=== PATIENT | male | born 1980 | race Caucasian/White ===

== ENCOUNTER 2017-06-04 10:40 | Emergency (ER) | payer SELFPAY ==
[~2017-06-04] VITALS: Ht 172.7 cm; Wt 68.2 kg
[2017-06-04 10:44] VITALS: BP 151/96; PULSE 105; RESP 14; TEMP 98.4; O2SAT 97
[2017-06-04 12:14] LABS: AUTOMATED NEUTROPHIL # 6.3 TH/MM3 (1.8-7.7); BASOPHIL % 0.5 % (0.0-2.0); EOSINOPHIL # 0.1 TH/MM3 (0-0.4); EOSINOPHIL % 1.5 % (0.0-4.0); HEMATOCRIT 47.4 % (39.0-51.0); HEMO FLAGS DIFF FINAL; LYMPHOCYTE # 1.1 TH/MM3 (1.0-4.8); MEAN CORPUSCULAR HEMOGLOBIN 30.6 PG (27.0-34.0); MEAN CORPUSCULAR HGB CONC 33.6 % (32.0-36.0); MONO % 6.9 % (0.0-8.0); NEUT % 77.1 % (16.0-70.0); PLATELET COUNT 229 TH/MM3 (150-450); RED BLOOD COUNT 5.21 MIL/MM3 (4.50-5.90); RED CELL DISTRIBUTION WIDTH 13.4 % (11.6-17.2); WHITE BLOOD COUNT 8.2 TH/MM3 (4.0-11.0)
[2017-06-04] MEDS ORDERED: TRAZ50TA12 PO (12:23)
[2017-06-04] MEDS ORDERED: EFFE150C PO (12:23)
[2017-06-04] MEDS ORDERED: GABA800T PO (12:23)
--- NOTE | 2017-06-04 12:24 | PD ---
HPI Chief Complaint: Psychiatric Symptoms Time Seen by Provider: 12:23 Travel History International Travel<30 days: No Contact w/Intl Traveler<30days: No Traveled to known affect area: No History of Present Illness HPI 36-year-old male with history of bipolar and depression presents emergency Department with complaints of "fleeting thoughts of suicide". She states he ran out of his meds 1 week ago and currently has no local PCP or psychiatrist. Patient denies recent alcohol or drug use. Patient currently living in a sober house. Patient denies any acute medical issues currently. He is requesting psychiatric evaluation. He has no known drug allergies. [facility] Social History Alcohol Use: No Tobacco Use: No Substance Use: No Allergies-Medications (Allergen,Severity, Reaction): Coded Allergies: No Known Allergies (Unverified , 06/04/17) Reported Meds & Prescriptions Reported Meds & Active Scripts Active Reported Trazodone (Trazodone HCl) 50 Mg Tab 50 Mg PO HS Gabapentin 800 Mg Tab 800 Mg PO QID Effexor XR 24 HR (Venlafaxine HCl) 150 Mg Cap 300 Mg PO DAILY Review of Systems Except as stated in HPI: all other systems reviewed are Neg General / Constitutional: No: Fever Eyes: No: Visual changes HENT: No: Headaches Cardiovascular: No: Chest Pain or Discomfort Respiratory: No: Shortness of Breath Gastrointestinal: No: Abdominal Pain Genitourinary: No: Dysuria Musculoskeletal: No: Pain Skin: No Rash Neurologic: No: Weakness Psychiatric: No: Depression Endocrine: No: Polydipsia Hematologic/Lymphatic: No: Easy Bruising Physical Exam Narrative GENERAL: Patient appears no acute distress. SKIN: Warm and dry. HEAD: Atraumatic. Normocephalic. EYES: Pupils equal and round. No scleral icterus. No injection or drainage. ENT: No nasal bleeding or discharge. Mucous membranes pink and moist. Pharynx is clear. Airway is patent. NECK: Trachea midline. Supple and nontender. CARDIOVASCULAR: Regular rate and rhythm. RESPIRATORY: No accessory muscle use. Clear to auscultation. Breath sounds equal bilaterally. MUSCULOSKELETAL: Extremities without clubbing, cyanosis, or edema. No obvious deformities. NEUROLOGICAL: Awake and alert. No obvious cranial nerve deficits. Motor grossly within normal limits. Five out of 5 muscle strength in the arms and legs. Normal speech. PSYCHIATRIC: Appropriate mood and affect; insight and judgment normal. Data Data Last Documented VS Vital Signs Date Time Temp Pulse Resp B/P (MAP) Pulse Ox O2 Delivery O2 Flow Rate FiO2 06/04/17 10:44 98.4 105 14 151/96 (114) 97 Orders Orders Complete Blood Count With Diff (06/04/17 11:16) Basic Metabolic Panel (Bmp) (06/04/17 11:16) Psych Screen (06/04/17 11:16) Drug Screen, Random Urine (06/04/17 11:16) Alcohol (Ethanol) (06/04/17 11:16) Labs Laboratory Tests Test 06/04/17 11:55 06/04/17 11:58 White Blood Count 8.2 TH/MM3 Red Blood Count 5.21 MIL/MM3 Hemoglobin 15.9 GM/DL Hematocrit 47.4 % Mean Corpuscular Volume 91.0 FL Mean Corpuscular Hemoglobin 30.6 PG Mean Corpuscular Hemoglobin Concent 33.6 % Red Cell Distribution Width 13.4 % Platelet Count 229 TH/MM3 Mean Platelet Volume 9.4 FL Neutrophils (%) (Auto) 77.1 % Lymphocytes (%) (Auto) 14.0 % Monocytes (%) (Auto) 6.9 % Eosinophils (%) (Auto) 1.5 % Basophils (%) (Auto) 0.5 % Neutrophils # (Auto) 6.3 TH/MM3 Lymphocytes # (Auto) 1.1 TH/MM3 Monocytes # (Auto) 0.6 TH/MM3 Eosinophils # (Auto) 0.1 TH/MM3 Basophils # (Auto) 0.0 TH/MM3 CBC Comment DIFF FINAL Differential Comment Blood Urea Nitrogen 12 MG/DL Creatinine 0.77 MG/DL Random Glucose 86 MG/DL Calcium Level 9.3 MG/DL Sodium Level 139 MEQ/L Potassium Level 4.0 MEQ/L Chloride Level 105 MEQ/L Carbon Dioxide Level 28.8 MEQ/L Anion Gap 5 MEQ/L Estimat Glomerular Filtration Rate 113 ML/MIN Ethyl Alcohol Level LESS THAN 3 MG/DL Urine Opiates Screen NEG Urine Barbiturates Screen NEG Urine Amphetamines Screen NEG Urine Benzodiazepines Screen NEG Urine Cocaine Screen NEG Urine Cannabinoids Screen NEG MDM Medical Decision Making Medical Screen Exam Complete: Yes Emergency Medical Condition: Yes Differential Diagnosis Bipolar disorder. Suicidal ideation. Need for psychiatric evaluation. Narrative Course Psychiatric labs are ordered per protocol. Labs are all within normal limits. Psychiatric screening ordered. Patient is medically cleared for psychiatric evaluation. Diagnosis Primary Impression: Depression Qualified Codes: F32.9 - Major depressive disorder, single episode, unspecified Additional Impressions: Bipolar disorder Qualified Codes: F31.32 - Bipolar disorder, current episode depressed, moderate Medical clearance for psychiatric admission Condition: Luis Martines Jun 04, 2017 12:24
[2017-06-04 12:35] LABS: ANION GAP 5 MEQ/L (5-15); BICARBONATE 28.8 MEQ/L (21.0-32.0); BLOOD UREA NITROGEN 12 MG/DL (7-18); CHLORIDE 105 MEQ/L (98-107); GLOMERULAR FILTRATION RATE 113 ML/MIN (>89); SODIUM (NA) 139 MEQ/L (136-145)
[2017-06-04 12:37] LABS: ALCOHOL LESS THAN 3 MG/DL (0-5)
[2017-06-04 17:18] VITALS: BP 150/94; PULSE 95; RESP 18; TEMP 97.7; O2SAT 100
[2017-06-04 22:17] VITALS: BP 150/88; PULSE 90; RESP 18; TEMP 97.4; O2SAT 96
[2017-06-05 02:00] VITALS: BP 142/88; PULSE 84; RESP 16; TEMP 98.2; O2SAT 97
[2017-06-05 06:18] VITALS: BP 128/84; PULSE 80; RESP 18; TEMP 97.5; O2SAT 97
[2017-06-05] MEDS ORDERED: IBUPROFEN 800 MG TAB PO ONE (10:00)
[2017-06-05 11:00] VITALS: BP 129/74; PULSE 100; RESP 18
[2017-06-05] MEDS ORDERED: TRAZ50TA12 PO (12:42)
[2017-06-05] MEDS ORDERED: EFFE150C PO (12:42)
[2017-06-05] MEDS ORDERED: GABA800T PO (12:42)
--- NOTE | 2017-06-05 12:43 | PD ---
Physical Exam Time Seen by Provider: 12:[address] Stallings has evaluated the patient, lifted the Horan act, and cleared the patient for discharge. Data Data Last Documented VS Vital Signs Date Time Temp Pulse Resp B/P (MAP) Pulse Ox O2 Delivery O2 Flow Rate FiO2 06/05/17 11:00 100 18 129/74 (92) Room Air 06/05/17 06:18 97.5 97 Orders Orders Complete Blood Count With Diff (06/04/17 11:16) Basic Metabolic Panel (Bmp) (06/04/17 11:16) Psych Screen (06/04/17 11:16) Drug Screen, Random Urine (06/04/17 11:16) Alcohol (Ethanol) (06/04/17 11:16) Diet Regular Basic (06/04/17 Dinner) Diet Regular Basic (06/05/17 Breakfast) Diet Regular Basic (06/05/17 Lunch) Ibuprofen (Motrin) (06/05/17 10:00) Gabapentin (Neurontin) (06/05/17 12:45) Labs Laboratory Tests Test 06/04/17 11:55 06/04/17 11:58 White Blood Count 8.2 TH/MM3 Red Blood Count 5.21 MIL/MM3 Hemoglobin 15.9 GM/DL Hematocrit 47.4 % Mean Corpuscular Volume 91.0 FL Mean Corpuscular Hemoglobin 30.6 PG Mean Corpuscular Hemoglobin Concent 33.6 % Red Cell Distribution Width 13.4 % Platelet Count 229 TH/MM3 Mean Platelet Volume 9.4 FL Neutrophils (%) (Auto) 77.1 % Lymphocytes (%) (Auto) 14.0 % Monocytes (%) (Auto) 6.9 % Eosinophils (%) (Auto) 1.5 % Basophils (%) (Auto) 0.5 % Neutrophils # (Auto) 6.3 TH/MM3 Lymphocytes # (Auto) 1.1 TH/MM3 Monocytes # (Auto) 0.6 TH/MM3 Eosinophils # (Auto) 0.1 TH/MM3 Basophils # (Auto) 0.0 TH/MM3 CBC Comment DIFF FINAL Differential Comment Blood Urea Nitrogen 12 MG/DL Creatinine 0.77 MG/DL Random Glucose 86 MG/DL Calcium Level 9.3 MG/DL Sodium Level 139 MEQ/L Potassium Level 4.0 MEQ/L Chloride Level 105 MEQ/L Carbon Dioxide Level 28.8 MEQ/L Anion Gap 5 MEQ/L Estimat Glomerular Filtration Rate 113 ML/MIN Ethyl Alcohol Level LESS THAN 3 MG/DL Urine Opiates Screen NEG Urine Barbiturates Screen NEG Urine Amphetamines Screen NEG Urine Benzodiazepines Screen NEG Urine Cocaine Screen NEG Urine Cannabinoids Screen NEG MDM Supervised Visit with [facility]: No Narrative Course Dr. Stallings has evaluated the patient, lifted the Horan act, and cleared the patient for discharge. Patient contracts safety. Denies suicidal or homicidal ideations. Patient will be provided community resource packet to [facility] for follow-up. Has friends and family for support. Patient was medically cleared by alternate provider prior to psych screening. Patient has been evaluated by psychiatry and and is now cleared for discharge. Diagnosis Primary Impression: Depression Qualified Codes: F32.9 - Major depressive disorder, single episode, unspecified Additional Impressions: Medical clearance for psychiatric admission Bipolar disorder Qualified Codes: F31.32 - Bipolar disorder, current episode depressed, moderate Referrals: JESSICA (Out patient) [facility] Primary Care Physician Psychiatrist Susanna [facility] Patient Instructions: Bipolar Disorder (ED), Depression (ED), General Instructions Additional Instruction: Contract safety to your self and others Follow-up with psychiatry Follow-up with primary care provider Follow-up with Zafar Lea Return to the emergency department immediately with worsening of symptoms Med/Other Pt SpecificInfo: No Change to Meds Disposition: 01 DISCHARGE HOME Condition: Stable Malou Herbert Jun 05, 2017 12:43
[2017-06-05 12:45] VITALS: BP 129/74; PULSE 100; RESP 18
--- NOTE | 2017-06-05 12:52 | PD ---
History of Present Illness Chief Complaint: Psychiatric Symptoms Time Seen by Provider: 12:30 Travel History International Travel<30 Days: No Contact w/Intl Traveler<30days: No Known affected area: No Legal Status Legal Status: Voluntary History of Present Illness: 36-year-old male presents voluntarily after moving to this area and wanting refills for his medicines. He denies any suicidal or homicidal ideation, plan or intent at this time, despite earlier reports documented by the ED physician. Patient is verbally ela for safety and he is competent to do so. No psychotic symptoms and no cognitive deficits. Patient was offered prescriptions and excepted them with plans to have them filled at [facility] and returned to [facility] for further evaluation and treatment. PFSH Past Medical History Anxiety: Yes Depression: Yes Past Surgical History Tonsillectomy: Yes Other Surgery: Yes (LITHOTRIPSY) Psychiatric History Psychiatric History Hx Psychiatric Treatment: Patient with a stated hx of depression and anxiety. History of Inpatient Treatment: Yes Guns or firearms in home: No Social History Hx Alcohol Use: No Hx Tobacco Use: No Substance Use Type: Alcohol, Marijuana, Amphetamines-Stimulants, Nicotine/ Cigarettes, Benzos (Valium,Xanax), Cocaine, Synth Opiates-Pain Pills Hx of Substance Use Treatment: Yes Allergies-Medications (Allergen,Severity, Reaction): Coded Allergies: No Known Allergies (Unverified , 06/04/17) Reported Meds & Prescriptions Reported Meds & Active Scripts Active Trazodone (Trazodone HCl) 50 Mg Tab 50 Mg PO HS Gabapentin 800 Mg Tab 800 Mg PO QID Effexor XR 24 HR (Venlafaxine HCl) 150 Mg Cap 300 Mg PO DAILY Review of Systems Psychiatric: COMPLAINS OF: Anxiety Except as stated in HPI: all other systems reviewed are Neg Mental Status Examination Appearance: Appropriate Consciousness: Alert Orientation: x4 Motor Activity: Normal gait Speech: Unremarkable Language: Adequate Fund of Knowledge: Adequate Attention and Concentration: Adequate Memory: Unremarkable Mood: Appropriate Affect: Appropriate Thought Process & Associations: Intact Thought Content: Appropriate Hallucination Type: None Delusion Type: None Suicidal Ideation: No Suicidal Plan: No Suicidal Intention: No Homicidal Ideation: No Homicidal Plan: No Homicidal Intention: No Insight: Adequate Judgment: Adequate MDM Medical Decision Making Medical Record Reviewed: Yes Assessment/Plan Patient interviewed at bedside. Medical record reviewed. Case discussed with nurse Robi. Patient does not meet Horan act criteria patient does not meet criteria for psychiatric hospitalization at this time. Patient wants to go home with prescriptions and this physician agrees. Follow up with Zafar Webber. Orders Orders Diet Regular Basic (06/04/17 Dinner) Diet Regular Basic (06/05/17 Breakfast) Diet Regular Basic (06/05/17 Lunch) Ibuprofen (Motrin) (06/05/17 10:00) Gabapentin (Neurontin) (06/05/17 12:45) Results Vital Signs Date Time Temp Pulse Resp B/P (MAP) Pulse Ox O2 Delivery O2 Flow Rate FiO2 06/05/17 11:00 100 18 129/74 (92) Room Air 06/05/17 06:18 97.5 80 18 128/84 (99) 97 Room Air 06/05/17 02:00 98.2 84 16 142/88 (106) 97 Room Air 06/04/17 22:17 97.4 90 18 150/88 (108) 96 Room Air 06/04/17 17:18 97.7 95 18 150/94 (112) 100 06/04/17 16:44 Diagnosis Primary Impression: Adjustment disorder with depressed mood Prescriptions Trazodone (Trazodone) 50 Mg Tab 50 MG PO HS for Control Depression, #30 TAB 0 Refills Prov: Lester Stallings MD 06/05/17 Gabapentin (Gabapentin) 800 Mg Tab 800 MG PO QID, #90 TAB 0 Refills Prov: Lester Stallings MD 06/05/17 Venlafaxine ER 24 HR (Effexor XR 24 HR) 150 Mg Cap 300 MG PO DAILY, #30 CAP 0 Refills Prov: Lester Stallings MD 06/05/17 Condition: Stable Lester Stallings MD Jun 05, 2017 12:52
[2017-06-05] MEDS ORDERED: GABAPENTIN 400 MG CAP PO ONE (13:00)
== END 2017-06-05 13:38 | disposition home or self-care (01) ==
LOC: NEPD 10:40 → NEPJ 06-05 13:38
DX: F31.32 Bipolar disorder, current episode depressed, moderate (principal); F43.21 Adjustment disorder with depressed mood; Z79.899 Other long term (current) drug therapy
CPT/HCPCS: 80048; 80307; 85025; 99284

== ENCOUNTER 2017-08-05 15:07 | Emergency (ER) | payer SELFPAY ==
[~2017-08-05] VITALS: Ht 172.7 cm; Wt 75.0 kg
[2017-08-05 15:07] VITALS: BP 178/91; PULSE 106; RESP 20; TEMP 98.8; O2SAT 98
[~2017-08-05 15:07] MED LIST: EFFE150C PO; GABA800T PO; TRAZ50TA12 PO
[2017-08-05] MEDS ORDERED: IOHEXOL 350 MG/ML 10 ML VIAL (for RAD DIAG) IVCONTRAST ONE (15:08)
[2017-08-05 16:05] LABS: AMORPHOUS SEDIMENT, URINE RARE; BILIRUBIN, URINE NEG (NEG); BLOOD, URINE TRACE (NEG); GLUCOSE,URINE NEG (NEG); KETONE, URINE NEG (NEG); NITRITE,URINE NEG (NEG); PH, URINE 6.5 (5.0-8.5); SQUAMOUS EPITHELIAL CELL URINE <1 /hpf (0-5); URINE COLOR YELLOW (YELLW/STRAW); URINE LEUKOCYTE ESTERASE NEG (NEG)
[2017-08-05 16:16] LABS: AUTOMATED NEUTROPHIL # 5.7 TH/MM3 (1.8-7.7); BASOPHIL # 0.1 TH/MM3 (0-0.2); BASOPHIL % 0.7 % (0.0-2.0); EOSINOPHIL # 0.1 TH/MM3 (0-0.4); EOSINOPHIL % 0.9 % (0.0-4.0); HEMATOCRIT 46.3 % (39.0-51.0); HEMOGLOBIN 15.9 GM/DL (13.0-17.0); LYMPH % 26.3 % (9.0-44.0); LYMPHOCYTE # 2.5 TH/MM3 (1.0-4.8); MEAN CELL VOLUME 89.2 FL (80.0-100.0); MEAN CORPUSCULAR HEMOGLOBIN 30.6 PG (27.0-34.0); MEAN CORPUSCULAR HGB CONC 34.3 % (32.0-36.0); MEAN PLATELET VOLUME 9.3 FL (7.0-11.0); MONO % 11.3 % (0.0-8.0); MONOCYTE # 1.1 TH/MM3 (0-0.9); NEUT % 60.8 % (16.0-70.0); PLATELET COUNT 266 TH/MM3 (150-450); PROTHROMBIN TIME - PATIENT 9.8 SEC (9.8-11.6); RED BLOOD COUNT 5.19 MIL/MM3 (4.50-5.90); RED CELL DISTRIBUTION WIDTH 14.1 % (11.6-17.2); WHITE BLOOD COUNT 9.5 TH/MM3 (4.0-11.0)
[2017-08-05 16:27] LABS: ALBUMIN 3.9 GM/DL (3.4-5.0); AST (GOT) 22 U/L (15-37); BICARBONATE 25.9 MEQ/L (21.0-32.0); BLOOD UREA NITROGEN 10 MG/DL (7-18); CALCIUM 9.1 MG/DL (8.5-10.1); CHLORIDE 105 MEQ/L (98-107); CREATININE 0.86 MG/DL (0.60-1.30); GLOMERULAR FILTRATION RATE 100 ML/MIN (>89); GLUCOSE,RANDOM 100 MG/DL (74-106); SODIUM (NA) 140 MEQ/L (136-145)
[2017-08-05 16:33] LABS: ALKALINE PHOSPHATASE 112 U/L (45-117); ALT (GPT) 36 U/L (12-78); TOTAL BILIRUBIN ADULT 0.3 MG/DL (0.2-1.0); TOTAL PROTEIN 7.8 GM/DL (6.4-8.2)
[2017-08-05] MEDS ORDERED: MORPHINE SULFATE 4 MG/ML INJ IV PUSH ONE (17:45)
[2017-08-05] MEDS ORDERED: ONDANSETRON HCL 4 MG/2 ML VIAL IV PUSH ONE (17:45)
[2017-08-05] MEDS ORDERED: SODIUM CHLORIDE 0.9% FLUSH 10 ML FLUSH IV FLUSH PRN (17:45)
--- NOTE | 2017-08-05 17:57 | PD ---
HPI Chief Complaint: Abdominal Pain Time Seen by Provider: 17:41 Travel History International Travel<30 days: No Contact w/Intl Traveler<30days: No Traveled to known affect area: No History of Present Illness HPI 28-year-old male that presents to the ED for evaluation of right lower quadrant abdominal pain. Per patient she's had this for the past 2 days. Having diarrhea as well as cramping abdominal pain. No nausea or vomiting. No fevers chills or sweats. Has had this for 2 days with no improvement. Has been taking OTC meds with minimal relief. Denies any trauma. No blood in the stool. States having a history of kidney stones in the past but states that feels different. No urinary symptoms. No chest pain or shortness of breath. No allergies to medication. Has not seen anybody for this. Denies any surgeries to his abdomen but does have a history of IBS per triage report. Per patient the pain is 6 out of 10. Only on the right lower quadrant. PFSH Past Medical History Anxiety: Yes Depression: Yes Kidney Stones: Yes Past Surgical History Tonsillectomy: Yes Other Surgery: Yes (LITHOTRIPSY) Social History Alcohol Use: No Tobacco Use: Yes Allergies-Medications (Allergen,Severity, Reaction): Coded Allergies: No Known Allergies (Unverified , 08/05/17) Reported Meds & Prescriptions Reported Meds & Active Scripts Active Lomotil (Diphenoxylate-Atropine) 2.5-0.025 Mg Tab 1 Tab PO Q6H PRN Bentyl (Dicyclomine HCl) 10 Mg Cap 10 Mg PO TID PRN Trazodone (Trazodone HCl) 50 Mg Tab 50 Mg PO HS Gabapentin 800 Mg Tab 800 Mg PO QID Effexor XR 24 HR (Venlafaxine HCl) 150 Mg Cap 300 Mg PO DAILY Review of Systems Except as stated in HPI: all other systems reviewed are Neg Physical Exam Narrative GENERAL: SKIN: Warm and dry. HEAD: Atraumatic. Normocephalic. EYES: Pupils equal and round. No scleral icterus. No injection or drainage. ENT: No nasal bleeding or discharge. Mucous membranes pink and moist. NECK: Trachea midline. No JVD. CARDIOVASCULAR: Regular rate and rhythm. RESPIRATORY: No accessory muscle use. Clear to auscultation. Breath sounds equal bilaterally. GASTROINTESTINAL: Abdomen soft, tender to palpation on the right lower quadrant especially with deep palpation, nondistended. Hepatic and splenic margins not palpable. MUSCULOSKELETAL: Extremities without clubbing, cyanosis, or edema. No obvious deformities. Full range of motion of the upper and lower extremities bilaterally. 2+ pulses bilaterally. NEUROLOGICAL: Awake and alert. No obvious cranial nerve deficits. Motor grossly within normal limits. Five out of 5 muscle strength in the arms and legs. Normal speech. PSYCHIATRIC: Appropriate mood and affect; insight and judgment normal. Data Data Last Documented VS Vital Signs Date Time Temp Pulse Resp B/P (MAP) Pulse Ox O2 Delivery O2 Flow Rate FiO2 08/05/17 15:07 98.8 106 20 178/91 (120) 98 Room Air Orders Orders Complete Blood Count With Diff (08/05/17 15:17) Comprehensive Metabolic Panel (08/05/17 15:17) Lipase (08/05/17 15:17) Prothrombin Time / Inr (Pt) (08/05/17 15:17) Act Partial Throm Time (Ptt) (08/05/17 15:17) Urinalysis - C+S If Indicated (08/05/17 15:17) Ct Abd/Pel W Iv Contrast(Rout) (08/05/17 17:44) Iv Access Insert/Monitor (08/05/17 17:44) Sodium Chloride 0.9% Flush (Ns Flush) (08/05/17 17:45) Morphine Inj (Morphine Inj) (08/05/17 17:45) Ondansetron Inj (Zofran Inj) (08/05/17 17:45) Iohexol 350 Inj (Omnipaque 350 Inj) (08/05/17 15:08) Ed Discharge Order (08/05/17 19:20) Labs Laboratory Tests Test 08/05/17 15:31 08/05/17 15:35 White Blood Count 9.5 TH/MM3 Red Blood Count 5.19 MIL/MM3 Hemoglobin 15.9 GM/DL Hematocrit 46.3 % Mean Corpuscular Volume 89.2 FL Mean Corpuscular Hemoglobin 30.6 PG Mean Corpuscular Hemoglobin Concent 34.3 % Red Cell Distribution Width 14.1 % Platelet Count 266 TH/MM3 Mean Platelet Volume 9.3 FL Neutrophils (%) (Auto) 60.8 % Lymphocytes (%) (Auto) 26.3 % Monocytes (%) (Auto) 11.3 % Eosinophils (%) (Auto) 0.9 % Basophils (%) (Auto) 0.7 % Neutrophils # (Auto) 5.7 TH/MM3 Lymphocytes # (Auto) 2.5 TH/MM3 Monocytes # (Auto) 1.1 TH/MM3 Eosinophils # (Auto) 0.1 TH/MM3 Basophils # (Auto) 0.1 TH/MM3 CBC Comment DIFF FINAL Differential Comment Prothrombin Time 9.8 SEC Prothromb Time International Ratio 1.0 RATIO Activated Partial Thromboplast Time 25.2 SEC Blood Urea Nitrogen 10 MG/DL Creatinine 0.86 MG/DL Random Glucose 100 MG/DL Total Protein 7.8 GM/DL Albumin 3.9 GM/DL Calcium Level 9.1 MG/DL Alkaline Phosphatase 112 U/L Aspartate Amino Transf (AST/SGOT) 22 U/L Alanine Aminotransferase (ALT/SGPT) 36 U/L Total Bilirubin 0.3 MG/DL Sodium Level 140 MEQ/L Potassium Level 3.5 MEQ/L Chloride Level 105 MEQ/L Carbon Dioxide Level 25.9 MEQ/L Anion Gap 9 MEQ/L Estimat Glomerular Filtration Rate 100 ML/MIN Lipase 249 U/L Urine Color YELLOW Urine Turbidity HAZY Urine pH 6.5 Urine Specific [place] 1.018 Urine Protein NEG mg/dL Urine Glucose (UA) NEG mg/dL Urine Ketones NEG mg/dL Urine Occult Blood TRACE Urine Nitrite NEG Urine Bilirubin NEG Urine Urobilinogen LESS THAN 2.0 MG/DL Urine Leukocyte Esterase NEG Urine RBC 11 /hpf Urine WBC 3 /hpf Urine Squamous Epithelial Cells <1 /hpf Urine Amorphous Sediment RARE Microscopic Urinalysis Comment CULT NOT INDICATED MDM Medical Decision Making Medical Screen Exam Complete: Yes Emergency Medical Condition: Yes Medical Record Reviewed: Yes Interpretation(s) CBC & BMP Diagram 08/05/17 15:31 Total Protein 7.8, Albumin 3.9, Calcium Level 9.1, Alkaline Phosphatase 112, Aspartate Amino Transf (AST/SGOT) 22, Alanine Aminotransferase (ALT/SGPT) 36, Total Bilirubin 0.3 Lipase within normal limits. Coags within normal limits. Urine did show some blood otherwise negative. CT abdomen negative Differential Diagnosis Appendicitis versus acute abdomen versus kidney stone versus UTI versus gastroenteritis versus diverticulitis Narrative Course 36-year-old male that presents to the ED for evaluation of right lower quadrant abdominal pain for 2 days. Patient was properly examined and was found to have signs and symptoms concerning for appendicitis versus kidney stone. More concerning for appendicitis secondary to the area where the patient has pain. Patient has never had surgeries. Pain with deep palpation. Labs and imaging were ordered. Labs were already done in triage and CAT scan was ordered by me. Labs essentially unremarkable but I still have concern about appendicitis secondary to the patient's location of discomfort. CT scan showed no sign of acute disease. Patient was reassured. This time I recommend trial of Lomotil as well as Bentyl for discomfort as well as diarrhea. Told to follow closely with PCP. No sign of appendicitis at this time. Follow with PCP. See ED worsening symptoms. Diagnosis Primary Impression: RLQ abdominal pain Additional Impression: Diarrhea Qualified Codes: A09 - Infectious gastroenteritis and colitis, unspecified Patient Instructions: General Instructions, Narcotic given in the ED Additional Instructions: Take medications as prescribed. Follow with PCP. See ED worsening symptoms. Med/Other Pt SpecificInfo: Prescription(s) given Scripts Diphenoxylate-Atropine (Lomotil) 2.5-0.025 Mg Tab 1 TAB PO Q6H Y for DIARRHEA, #20 TAB 0 Refills Prov: Breann Logan DO 08/05/17 Dicyclomine (Bentyl) 10 Mg Cap 10 MG PO TID Y for Bowel Management, #14 CAP 0 Refills Prov: Breann Logan DO 08/05/17 Disposition: 01 DISCHARGE HOME Condition: Stable Nabil Islas Aug 05, 2017 17:57
--- NOTE | 2017-08-05 19:16 | RADRPT ---
EXAM DATE/TIME: 08/05/2017 18:58 [facility] COMPARISON: No previous studies available for comparison. INDICATIONS : Right lower region abdomen pain for two days. IV CONTRAST: 100 cc Omnipaque 350 (iohexol) IV ORAL CONTRAST: No oral contrast ingested. RADIATION DOSE: 6.64 CTDIvol (mGy) MEDICAL HISTORY : IBS SURGICAL HISTORY : None. ENCOUNTER: Initial ACUITY: 2 days PAIN SCALE: 9/10 LOCATION: Right lower quadrant TECHNIQUE: Volumetric scanning of the abdomen and pelvis was performed. Using automated exposure control and ad justment of the mA and/or kV according to patient size, radiation dose was kept as low as reasonably achievable to obtain optimal diagnostic quality images. DICOM format image data is available electro nically for review and comparison. FINDINGS: LOWER LUNGS: The visualized lower lungs are clear. LIVER: Homogeneous density without lesion. There is no dilation of the biliary tree. No calcified gallston es. SPLEEN: Normal size without lesion. PANCREAS: Within normal limits. KIDNEYS: Normal in size and shape. There is no mass, stone or hydronephrosis. ADRENAL GLANDS: Within normal limits. VASCULAR: There is no aortic aneurysm. BOWEL/MESENTERY: The stomach, small bowel, and colon demonstrate no acute abnormality. There is no free intraperitone al air or fluid. The appendix is unremarkable. There is stool throughout the colon. No inflammatory c hanges are demonstrated. ABDOMINAL WALL: Within normal limits. RETROPERITONEUM: There is no lymphadenopathy. BLADDER: No wall thickening or mass. REPRODUCTIVE: Within normal limits. INGUINAL: There is no lymphadenopathy or hernia. MUSCULOSKELETAL: Within normal limits for patient age. CONCLUSION: Unremarkable CT scan of the abdomen pelvis for patient's age. No acute pathology. Derek Limon MD on August 05, 2017 at 19:11 Board Certified Radiologist. This report was verified electronically.
[2017-08-05] MEDS ORDERED: DICY10 PO (19:19)
[2017-08-05] MEDS ORDERED: LOMO2.5T PO (19:19)
== END 2017-08-05 19:45 | disposition home or self-care (01) ==
LOC: NEPK 15:07
DX: A09 Infectious gastroenteritis and colitis, unspecified (principal)
CPT/HCPCS: 74177; 80053; 81001; 83690; 85025; 85610; 85730; 96374; 99285; J2270; J2405; Q9967

== ENCOUNTER 2017-08-20 08:29 | Emergency (ER) | payer SELFPAY ==
[~2017-08-20] VITALS: Ht 172.7 cm; Wt 75.0 kg
[~2017-08-20 08:29] MED LIST changes: +DICY10 PO; +LOMO2.5T PO
[2017-08-20 08:30] VITALS: BP 147/88; PULSE 101; RESP 18; TEMP 96.8; O2SAT 98
[2017-08-20] MEDS ORDERED: BROMSYP PO (09:16)
[2017-08-20] MEDS ORDERED: BENZ100 PO (09:16)
--- NOTE | 2017-08-20 09:20 | PD ---
HPI Chief Complaint: Cold / Flu Symptoms Time Seen by Provider: 09:15 Travel History International Travel<30 days: No Contact w/Intl Traveler<30days: No Traveled to known affect area: No History of Present Illness HPI 36-year-old male presents for evaluation of cough, congestion. Symptoms started 1 week ago. The cough is productive with yellow phlegm. He reports that he had chills 2 days ago but none since then. No objective fevers. He reports that he lives in a sober living community with multiple sick contacts. Denies rash, recent travel, nausea or vomiting, abdominal pain. He is not currently using any medication for symptom relief. No other complaints. PFSH Past Medical History Anxiety: Yes Depression: Yes Kidney Stones: Yes Past Surgical History Tonsillectomy: Yes Other Surgery: Yes (LITHOTRIPSY) Social History Alcohol Use: No Tobacco Use: Yes Allergies-Medications (Allergen,Severity, Reaction): Coded Allergies: No Known Allergies (Unverified , 08/20/17) Reported Meds & Prescriptions Reported Meds & Active Scripts Active Tessalon Perles (Benzonatate) 100 Mg Cap 100 Mg PO TID PRN Bromfed DM Liq (Dadkkpnyzrdroyy-Mydhpantclsrspg-VT Liq) 30-2-10 Mg/5 Ml Syrp 5 Ml PO Q6H PRN Lomotil (Diphenoxylate-Atropine) 2.5-0.025 Mg Tab 1 Tab PO Q6H PRN Bentyl (Dicyclomine HCl) 10 Mg Cap 10 Mg PO TID PRN Trazodone (Trazodone HCl) 50 Mg Tab 50 Mg PO HS Gabapentin 800 Mg Tab 800 Mg PO QID Effexor XR 24 HR (Venlafaxine HCl) 150 Mg Cap 300 Mg PO DAILY Review of Systems Except as stated in HPI: all other systems reviewed are Neg Physical Exam Narrative GENERAL: Old developed well-nourished male in no acute distress SKIN: Warm and dry. HEAD: Atraumatic. Normocephalic. EYES: Pupils equal and round. No scleral icterus. No injection or drainage. ENT: No nasal bleeding or discharge. Mucous membranes pink and moist. No oropharyngeal erythema or exudate. Tympanic movements appear normal without erythema or fluid level. NECK: Trachea midline. No JVD. No lymphadenopathy CARDIOVASCULAR: Regular rate and rhythm. No murmur appreciated. RESPIRATORY: No accessory muscle use. Clear to auscultation. Breath sounds equal bilaterally. No crackles no wheezing or rhonchi GASTROINTESTINAL: Abdomen soft, non-tender, nondistended. Hepatic and splenic margins not palpable. Data Data Last Documented VS Vital Signs Date Time Temp Pulse Resp B/P (MAP) Pulse Ox O2 Delivery O2 Flow Rate FiO2 08/20/17 08:30 96.8 101 18 147/88 (107) 98 MDM Medical Decision Making Medical Screen Exam Complete: Yes Emergency Medical Condition: Yes Medical Record Reviewed: Yes Differential Diagnosis Bronchitis, pneumonia, influenza, sinusitis, pharyngitis Narrative Course 36-year-old male with 1 week of cold symptoms. He appears well. I suspect he has a viral bronchitis. He will be discharged with medication for symptom control. Diagnosis Primary Impression: Bronchitis Departure Forms: Tests/Procedures, Work Release Enter return to work date: Aug 21, 2017 Additional Instructions: Medication as needed. Avoid tobacco products. Stay well-hydrated and well- nourished. Return for any emergent medical conditions. Med/Other Pt SpecificInfo: Prescription(s) given Scripts Benzonatate (Tessalon Perles) 100 Mg Cap 100 MG PO TID Y for COUGH, #30 CAP 0 Refills Prov: Ranjit De La Torre MD 08/20/17 Rgvrbkkvlxebbta-Xfottybtcjnttuq-WN Liq (Bromfed DM Liq) 30-2-10 Mg/5 Ml Syrp 5 ML PO Q6H Y for COUGH AND/OR COLD SYMPTOMS, #1 BOTTLE 0 Refills Prov: Ranjit De La Torre MD 08/20/17 Disposition: 01 DISCHARGE HOME Condition: Stable Owen Quiroz Aug 20, 2017 09:20
== END 2017-08-20 09:29 | disposition home or self-care (01) ==
LOC: NEPK 08:29
DX: J40 Bronchitis, not specified as acute or chronic (principal); Z72.0 Tobacco use; Z87.442 Personal history of urinary calculi
CPT/HCPCS: 99283

== ENCOUNTER 2017-12-21 09:00 | Emergency (ER) | payer SELFPAY ==
[~2017-12-21] VITALS: Ht 172.7 cm; Wt 76.0 kg
[~2017-12-21 09:00] MED LIST changes: +BENZ100 PO; +BROMSYP PO
[2017-12-21 09:05] VITALS: BP 139/92; PULSE 93; RESP 19; TEMP 98.1; O2SAT 100
[2017-12-21] MEDS ORDERED: IBUPROFEN 800 MG TAB PO ONE (09:15)
[2017-12-21] MEDS ORDERED: ARIP2 PO (09:17)
--- NOTE | 2017-12-21 09:46 | RADRPT ---
EXAM DATE: 12/21/2017 9:43 AM EDT AGE/SEX: 37 years / Male INDICATIONS: Pain from walking on lateral, superior aspect. CLINICAL DATA: This is the patient's initial encounter. Patient reports that signs and symptoms have been present for 2 days and indicates a pain score of 5/10. MEDICAL/SURGICAL HISTORY: . Prior break, 1 year ago. None. COMPARISON: No prior exams available for comparison. FINDINGS: Bony structures are intact and in normal alignment. Osseous density is normal. Soft tissues are unre markable. No radiopaque foreign bodies seen. There may be some old fractures involving the heads of the third and fourth metatarsals CONCLUSION: No acute fracture Electronically signed by: Ernie Tyson MD 12/21/2017 9:45 AM EDT
[2017-12-21] MEDS ORDERED: TRAM50TA PO (09:55)
[2017-12-21] MEDS ORDERED: IBUP1TAB7 PO (09:55)
[2017-12-21] MEDS ORDERED: traMADol HCL 50 MG TAB PO ONE (10:00)
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
== END 2017-12-21 10:28 | disposition home or self-care (01) ==
LOC: NEPD 09:00
DX: M65.9 Synovitis and tenosynovitis, unspecified (principal); F41.8 Other specified anxiety disorders; Z87.442 Personal history of urinary calculi; Z72.0 Tobacco use
CPT/HCPCS: 73630; 99283

== ENCOUNTER 2018-01-05 00:40 | Observation (INO) ==
--- NOTE | 2018-01-05 01:31 | ED ---
HPI General Stated complaint: Mental Status/Evac/SMA Time Seen by Provider: 01/05/18 00:59 Source: patient Limitations: no limitations History of Present Illness HPI narrative: The patient is a 37 year old male who presents to the [facility] emergency department with a history of running out of his psychiatric medications, thus prompting a visit to the [facility] for evaluation. The patient was then sent to this facility for medical clearance. The patient on arrival is drowsy and difficult to get any history from. The patient has slurred speech. The patient confirms that he is out of his medication and was crying frequently this wanting the visit to [facility]. He denies any suicidal ideations at this time, however over at the [facility] he had reported suicidal ideations. The patient presented for a voluntary evaluation. Related Data Home Medications Medication Instructions Recorded Confirmed aripiprazole 10 mg PO DAILY 01/05/18 01/05/18 aripiprazole [Abilify] 5 mg PO DAILY 01/05/18 01/05/18 benztropine 0.02 mg/kg PO BID 01/05/18 01/05/18 divalproex [Depakote] 1,000 mg PO DAILY 01/05/18 01/05/18 gabapentin 800 mg PO BID 01/05/18 01/05/18 trazodone 100 mg PO DAILY 01/05/18 01/05/18 venlafaxine 300 mg PO DAILY 01/05/18 01/05/18 Allergies Allergy/AdvReac Type Severity Reaction Status Date / Time No Known Allergies Allergy Unverified 01/05/18 00:49 Review of Systems ROS Unobtainable unobtainable due to mental status Neurologic Reports behavioral changes Psychiatric Reports depression PMFSH History History Provided By: Patient Medical History Medical History Anxiety (Acute) Depression (Acute) Social History Social History Smoking Status: Former smoker Recent Travel in [place] within the Last 8 Weeks: No Recent Out of Country Travel within the Last 8 Weeks: No Exam HENMT Head: normocephalic and atraumatic Nose: no nasal discharge and no epistaxis Mouth: moist mucous membranes Eyes Sclera: normal sclerae Pupils: PERRL and dilated (Dilated at 6 mm although reactive to light bilaterally.) Neck Neck: trachea midline and no JVD Resp Effort & Inspection: no use of accessory muscles Auscultation: clear to auscultation bilaterally Cardio Rate: regular rate Rhythm: regular rhythm Heart Sounds: no murmurs GI Inspection: non-distended Palpation: soft, no hepatosplenomegaly and nontender Skin General: dry skin (warm) Neuro General: alert and other (The patient is drowsy on examination. The patient has to be stimulated in order to be awakened. The patient frequently falls asleep during exam.) Cranial Nerves: other Speech: speech normal Motor: no movement abnormalities noted Sensory Exam: no sensory deficits noted Extrem General: normal to inspection, no clubbing, no cyanosis and no edema Psych Mood: congruent mood Affect: normal affect Judgment: judgment good Course Hospital Course: During the course of the patient's emergency department visit, the patient's history, examination, and differential diagnosis were reviewed with the patient. The patient was placed on a site monitor with oximetry and frequent blood pressure monitoring. The patient had IV access obtained and blood work sent for analysis. The patient was initially provided normal saline IV fluids. Consultations Consultation #1: The patient's case including history, pertinent physical examination findings, and laboratory studies were discussed with Dr. Salinas. It was agreed that the patient would be admitted to the hospitalist service. Initial Documented Vital Signs Temperature 98.6 F 01/05/18 00:49 Pulse Rate 91 H 01/05/18 00:49 Respiratory Rate 16 01/05/18 00:49 Blood Pressure 130/84 01/05/18 00:49 Pulse Oximetry 100 01/05/18 00:49 Last Documented Vital Signs Temperature 98.6 F 01/05/18 00:49 Pulse Rate 72 01/05/18 06:47 Respiratory Rate 16 01/05/18 06:47 Blood Pressure 102/72 01/05/18 06:49 Pulse Oximetry 96 01/05/18 06:48 Medical Decision Making MDM Narrative Medical decision making narrative: The patient's diagnostic testing is remarkable for a white count of 10.1, hemoglobin 14.7, monocytes 11.8, PT 10, PTT 22.4, CMP is remarkable for chloride of 108, ammonia level is elevated at 49. This will be monitored and could be related to medications the patient has been on as the patient's elevated LFTs are within normal limits, urinalysis shows small occult blood few mucus hazy urine, culture not indicated. Chest x- ray shows no acute cardiopulmonary disease. Urine drug screen is negative, alcohol level less than 3. CT scan of the brain was negative. Depakote level was 3. The patient continues to be very sedated and difficult to get any history from at this time. The patient will be admitted for observation. The patient's medications will be held and the patient will be reassessed for improvement in his mentation. Medical Records Medical records reviewed: Yes I reviewed the patient's medical records. Lab Data Lab results reviewed: Yes I reviewed the patient's lab results. Result diagrams: 01/05/18 01:50 01/05/18 05:10 Lab Results 01/05/18 01/05/18 01/05/18 Range/Units 01:50 01:50 01:50 WBC 10.1 (4.0-11.0) th/mm3 RBC 4.86 (4.50-5.90) mil/mm3 Hgb 14.7 (13.0-17.0) gm/dL Hct 44.4 (39.0-51.0) % MCV 91.5 (80.0-100.0) fL MCH 30.3 (27.0-34.0) pg MCHC 33.1 (32.0-36.0) % RDW 14.9 (11.6-17.2) % Plt Count 236 (150-450) th/mm3 MPV 9.8 (7.0-11.0) fL Neut % (Auto) 58.3 (16.0-70.0) % Lymph % (Auto) 25.8 (9.0-44.0) % Wells % (Auto) 11.8 H (0.0-8.0) % Eos % (Auto) 3.5 (0.0-4.0) % Baso % (Auto) 0.6 (0.0-2.0) % Neut # (Auto) 5.9 (1.8-7.7) th/mm3 Lymph # (Auto) 2.6 (1.0-4.8) th/mm3 Wells # (Auto) 1.2 H (0.0-0.9) th/mm3 Eos # (Auto) 0.4 (0.0-0.4) th/mm3 Baso # (Auto) 0.1 (0.0-0.2) th/mm3 WBC Differential . Differential Comment Auto diff final PT 10.0 (9.8-11.6) sec INR 1.0 Ratio APTT 22.4 L (24.3-30.1) sec Sodium (136-145) meq/L Potassium (3.5-5.1) meq/L Chloride (98-107) meq/L Carbon Dioxide (21.0-32.0) meq/L Anion Gap (5-15) meq/L BUN (7-18) mg/dL Creatinine (0.60-1.30) mg/dL Estimated GFR (>89) mL/min Random Glucose (74-106) mg/dL Calcium (8.5-10.1) mg/dL Magnesium (1.5-2.5) mg/dL Total Bilirubin (0.2-1.0) mg/dL AST (15-37) U/L ALT (12-78) U/L Alkaline Phosphatase (45-117) U/L Ammonia (11-32) mcmol/L Total Creatine Kinase ND CK-MB (CK-2) ND Troponin I ND Total Protein (6.4-8.2) g/dL Albumin (3.4-5.0) g/dL Lipase Not Reportable TSH ND Urine Color (Yellw/Straw) Urine Clarity (Clear) Urine pH (5.0-8.5) Ur Specific [place] (1.002-1.035) Urine Protein (Neg-Trace) mg/dL Urine Glucose (UA) (Negative) mg/dL Urine Ketones (Negative) mg/dL Urine Occult Blood (Negative) Urine Nitrate (Negative) Urine Bilirubin (Negative) Urine Urobilinogen (Less than 2) mg/dL Ur Leukocyte Esterase (Negative) Urine RBC (0-3) /hpf Urine WBC (0-5) /hpf Urine Mucus (Occasional) /lpf Micro UA Comment Urine Culture Comments Urine Opiates Screen (Neg) Ur Barbiturates Screen (Neg) Valproic Acid (50-100) mcg/mL Ur Amphetamines Screen (Neg) U Benzodiazepines Scrn (Neg) Urine Cocaine Screen (Neg) U Cannabinoids Screen (Neg) Serum Alcohol ND 01/05/18 01/05/18 01/05/18 Range/Units 01:50 03:00 03:00 WBC (4.0-11.0) th/mm3 RBC (4.50-5.90) mil/mm3 Hgb (13.0-17.0) gm/dL Hct (39.0-51.0) % MCV (80.0-100.0) fL MCH (27.0-34.0) pg MCHC (32.0-36.0) % RDW (11.6-17.2) % Plt Count (150-450) th/mm3 MPV (7.0-11.0) fL Neut % (Auto) (16.0-70.0) % Lymph % (Auto) (9.0-44.0) % Wells % (Auto) (0.0-8.0) % Eos % (Auto) (0.0-4.0) % Baso % (Auto) (0.0-2.0) % Neut # (Auto) (1.8-7.7) th/mm3 Lymph # (Auto) (1.0-4.8) th/mm3 Wells # (Auto) (0.0-0.9) th/mm3 Eos # (Auto) (0.0-0.4) th/mm3 Baso # (Auto) (0.0-0.2) th/mm3 WBC Differential Differential Comment PT (9.8-11.6) sec INR Ratio APTT (24.3-30.1) sec Sodium (136-145) meq/L Potassium (3.5-5.1) meq/L Chloride (98-107) meq/L Carbon Dioxide (21.0-32.0) meq/L Anion Gap (5-15) meq/L BUN (7-18) mg/dL Creatinine (0.60-1.30) mg/dL Estimated GFR (>89) mL/min Random Glucose (74-106) mg/dL Calcium (8.5-10.1) mg/dL Magnesium (1.5-2.5) mg/dL Total Bilirubin (0.2-1.0) mg/dL AST (15-37) U/L ALT (12-78) U/L Alkaline Phosphatase (45-117) U/L Ammonia 49 H (11-32) mcmol/L Total Creatine Kinase CK-MB (CK-2) Troponin I Total Protein (6.4-8.2) g/dL Albumin (3.4-5.0) g/dL Lipase TSH Urine Color Yellow (Yellw/Straw) Urine Clarity Clear (Clear) Urine pH 6.0 (5.0-8.5) Ur Specific [place] 1.006 (1.002-1.035) Urine Protein Negative (Neg-Trace) mg/dL Urine Glucose (UA) Negative (Negative) mg/dL Urine Ketones Negative (Negative) mg/dL Urine Occult Blood Small H (Negative) Urine Nitrate Negative (Negative) Urine Bilirubin Negative (Negative) Urine Urobilinogen Less than 2 (Less than 2) mg/dL Ur Leukocyte Esterase Negative (Negative) Urine RBC 2 (0-3) /hpf Urine WBC 2 (0-5) /hpf Urine Mucus Few H (Occasional) /lpf Micro UA Comment Culture not ind Urine Culture Comments Culture not ind Urine Opiates Screen Neg (Neg) Ur Barbiturates Screen Neg (Neg) Valproic Acid (50-100) mcg/mL Ur Amphetamines Screen Neg (Neg) U Benzodiazepines Scrn Neg (Neg) Urine Cocaine Screen Neg (Neg) U Cannabinoids Screen Neg (Neg) Serum Alcohol 01/05/18 01/05/18 01/05/18 Range/Units 05:10 05:10 05:10 WBC (4.0-11.0) th/mm3 RBC (4.50-5.90) mil/mm3 Hgb (13.0-17.0) gm/dL Hct (39.0-51.0) % MCV (80.0-100.0) fL MCH (27.0-34.0) pg MCHC (32.0-36.0) % RDW (11.6-17.2) % Plt Count (150-450) th/mm3 MPV (7.0-11.0) fL Neut % (Auto) (16.0-70.0) % Lymph % (Auto) (9.0-44.0) % Wells % (Auto) (0.0-8.0) % Eos % (Auto) (0.0-4.0) % Baso % (Auto) (0.0-2.0) % Neut # (Auto) (1.8-7.7) th/mm3 Lymph # (Auto) (1.0-4.8) th/mm3 Wells # (Auto) (0.0-0.9) th/mm3 Eos # (Auto) (0.0-0.4) th/mm3 Baso # (Auto) (0.0-0.2) th/mm3 WBC Differential Differential Comment PT (9.8-11.6) sec INR Ratio APTT (24.3-30.1) sec Sodium 141 (136-145) meq/L Potassium 4.2 (3.5-5.1) meq/L Chloride 108 H (98-107) meq/L Carbon Dioxide 25.5 (21.0-32.0) meq/L Anion Gap 8 (5-15) meq/L BUN 13 (7-18) mg/dL Creatinine 0.87 (0.60-1.30) mg/dL Estimated GFR Greater than 89 (>89) mL/min Random Glucose 90 (74-106) mg/dL Calcium 8.8 (8.5-10.1) mg/dL Magnesium 2.0 (1.5-2.5) mg/dL Total Bilirubin 0.4 (0.2-1.0) mg/dL AST 18 (15-37) U/L ALT 23 (12-78) U/L Alkaline Phosphatase 100 (45-117) U/L Ammonia (11-32) mcmol/L Total Creatine Kinase 74 CK-MB (CK-2) Troponin I Less than 0.02 L Total Protein 7.0 (6.4-8.2) g/dL Albumin 3.7 (3.4-5.0) g/dL Lipase 79 TSH 1.250 Urine Color (Yellw/Straw) Urine Clarity (Clear) Urine pH (5.0-8.5) Ur Specific [place] (1.002-1.035) Urine Protein (Neg-Trace) mg/dL Urine Glucose (UA) (Negative) mg/dL Urine Ketones (Negative) mg/dL Urine Occult Blood (Negative) Urine Nitrate (Negative) Urine Bilirubin (Negative) Urine Urobilinogen (Less than 2) mg/dL Ur Leukocyte Esterase (Negative) Urine RBC (0-3) /hpf Urine WBC (0-5) /hpf Urine Mucus (Occasional) /lpf Micro UA Comment Urine Culture Comments Urine Opiates Screen (Neg) Ur Barbiturates Screen (Neg) Valproic Acid 3 L (50-100) mcg/mL Ur Amphetamines Screen (Neg) U Benzodiazepines Scrn (Neg) Urine Cocaine Screen (Neg) U Cannabinoids Screen (Neg) Serum Alcohol Less than 3 Imaging Data Radiologist's impression: ITS Impressions Chest X-Ray 01/05/18 01:52 CONCLUSION: 1. No acute cardiopulmonary disease. Head CT 01/05/18 05:31 CONCLUSION: 1. No acute intracranial abnormality. ECG Data Attestation: I personally reviewed and interpreted this ECG as follows: Interpretation: The patient had a EKG done on arrival that shows a sinus rhythm heart at 78, QRS duration 88 ms, QTC [address] segment elevation. Qs are noted in lead III. Discharge Plan Discharge Disposition Patient Disposition: 30 Still Patient Discharge Condition Condition: Fair Discharge Details Discharge Problem: Altered mental state Physicians Team ED Provider: Marlin Hurst Primary Care Provider: Primary Care Kate Collazo Attending Provider: Teddy Kee Status ED Status: Admitted Observation Patient
[2018-01-05] MEDS ORDERED: Sodium Chlor 0.9% Inj 500 ML IV.SIG ONE (01:52)
[2018-01-05 02:15] LABS: Baso # (Auto) 0.1 th/mm3 (0.0-0.2); Baso % (Auto) 0.6 % (0.0-2.0); Eos # (Auto) 0.4 th/mm3 (0.0-0.4); Eos % (Auto) 3.5 % (0.0-4.0); Hematocrit 44.4 % (39.0-51.0); Hemoglobin 14.7 gm/dL (13.0-17.0); Lymph # (Auto) 2.6 th/mm3 (1.0-4.8); Lymph % (Auto) 25.8 % (9.0-44.0); Mean Corpuscular HGB Conc 33.1 % (32.0-36.0); Mean Corpuscular Hemoglobin 30.3 pg (27.0-34.0); Mean Corpuscular Volume 91.5 fL (80.0-100.0); Mean Platelet Volume 9.8 fL (7.0-11.0); Mono # (Auto) 1.2 th/mm3 (0.0-0.9); Mono % (Auto) 11.8 % (0.0-8.0); Neut # (Auto) 5.9 th/mm3 (1.8-7.7); Neut % (Auto) 58.3 % (16.0-70.0); Platelet Count 236 th/mm3 (150-450); Red Blood Count 4.86 mil/mm3 (4.50-5.90); Red Cell Distribution Width 14.9 % (11.6-17.2); White Blood Count 10.1 th/mm3 (4.0-11.0)
[2018-01-05 02:31] LABS: Activated Partial Thrombo Time 22.4 sec (24.3-30.1)
--- NOTE | 2018-01-05 02:58 | XR ---
EXAM DATE: 01/05/2018 2:13 AM EDT AGE/SEX: 37 years / Male INDICATIONS: Altered mental status. Congestion. CLINICAL DATA: This is the patient's initial encounter. Patient reports that signs and symptoms have been present for 1 day and indicates a pain score of Nonresponsive. MEDICAL/SURGICAL HISTORY: None. None. COMPARISON: No prior exams available for comparison. FINDINGS: No significant focal pleural or parenchymal opacities. The cardiomediastinal contours are unremarkabl e. Osseous structures are intact. CONCLUSION: 1. No acute cardiopulmonary disease. Electronically signed by: Andrea Catherine MD 01/05/2018 2:57 AM EDT
[2018-01-05 03:32] LABS: Bilirubin,Urine Negative (Negative); Clarity,Urine Clear (Clear); Color,Urine Yellow (Yellw/Straw); Glucose,Urine (UA) Negative (Negative); Leukocyte Esterase,Urine Negative (Negative); Mucus,Urine Few /lpf (Occasional); Nitrite,Urine Negative (Negative); Specific Gravity,Urine 1.006 (1.002-1.035)
[2018-01-05 03:35] LABS: Amphetamine Screen,Urine Neg (Neg); Barbiturate Screen,Urine Neg (Neg); Cannabinoid Screen,Urine Neg (Neg); Cocaine Screen,Urine Neg (Neg)
[2018-01-05 03:36] LABS: Opiate Screen,Urine Neg (Neg)
[2018-01-05 05:38] LABS: Alanine Aminotransferase 23 U/L (12-78); Albumin 3.7 g/dL (3.4-5.0); Anion Gap 8 meq/L (5-15); Aspartate Aminotransferase 18 U/L (15-37); Blood Urea Nitrogen 13 mg/dL (7-18); Calcium 8.8 mg/dL (8.5-10.1); Carbon Dioxide 25.5 meq/L (21.0-32.0); Chloride 108 meq/L (98-107); Glomerular Filtration Rate Greater Than 89 mL/min (>89); Glucose,Random 90 mg/dL (74-106); Potassium 4.2 meq/L (3.5-5.1); Sodium 141 meq/L (136-145)
[2018-01-05 05:41] LABS: Alkaline Phosphatase 100 U/L (45-117)
[2018-01-05 06:01] LABS: Creatine Kinase 74 U/L (39-308); Lipase 79 U/L (73-393)
[2018-01-05] MEDS ORDERED: Temazepam 15 MG Capsule PO PRN (06:09)
[2018-01-05] MEDS ORDERED: Bisacodyl 10 MG Supp RECTAL PRN (06:09)
[2018-01-05 06:31] LABS: Troponin I ND ng/mL (0.02-0.05)
[2018-01-05 06:32] LABS: Alcohol ND mg/dL (0-5); Creatine Kinase ND U/L (39-308); Creatine Kinase MB ND ng/mL (0.5-3.6); Thyroid Stimulating Hormone ND uIU/mL (0.358-3.740)
--- NOTE | 2018-01-05 07:01 | CT ---
EXAM DATE: 01/05/2018 6:58 AM EDT AGE/SEX: 37 years / Male INDICATIONS: Altered mental status. CLINICAL DATA: This is the patient's initial encounter. Patient reports that signs and symptoms have been present for 1 day and indicates a pain score of Nonresponsive. MEDICAL/SURGICAL HISTORY: Non-responsive. Non-responsive. RADIATION DOSE: 56.35 CTDI (mGy) COMPARISON: No prior exams available for comparison. TECHNIQUE: CT of the head without contrast. Using automated exposure control and adjustment of the mA and/or kV according to patient size, radiation dose was kept as low as reasonably achievable to ob tain optimal diagnostic quality images. DICOM format image data is available electronically for revi ew and comparison. FINDINGS: Cerebrum: The ventricles are normal for age. No evidence of midline shift, mass lesion, hemorrhage o r acute infarction. No extraaxial fluid collections are seen. Posterior Fossa: The cerebellum and brainstem are intact. The 4th ventricle is midline. The cerebe llopontine angle is unremarkable. Extracranial: The visualized portion of the orbits is intact. Skull: The calvaria is intact. No evidence of skull fracture. CONCLUSION: 1. No acute intracranial abnormality. Electronically signed by: Andrea Catherine MD 01/05/2018 7:00 AM EDT
--- NOTE | 2018-01-05 09:33 | ECG ---
Date Performed: 01/05/2018 Time Performed: 02:28:58 PTAGE: 37 years EKG: Sinus rhythm NONSPECIFIC T-WAVE ABNORMALITY BORDERLINE ECG NO PREVIOUS TRACING DOCTOR: Osito Palacios Interpretating Date/Time 01/05/2018 09:31:39
--- NOTE | 2018-01-05 10:26 | P.HPIM ---
History of Present Illness Service: [facility] Primary Care Physician: No Primary Care Physician History of Present Illness: 37-year-old male with a history significant for anxiety and depression. The patient reports he has been on gabapentin, Effexor, and Abilify. He follows with Zafar Webber. About a week ago he states he was started on Cogentin to help with tremors. Since then, he reports he has been a foggy feeling. He states his depression got worse to the point he where he became suicidal. He is still reporting suicidal ideation at this time but does not have a plan. - Diagnosis (1) Acute encephalopathy (2) Anxiety and depression (3) Suicidal ideation Inpatient Certification: I certify that the inpatient services were ordered in accordance with Medicare regulations governing the order. This includes certification that hospital inpatient services are reasonable and necessary and in the case of services not specified as inpatient-only under 42 CFR 419.22(n), that they are appropriately provided as inpatient services in accordance to with the 2-midnight benchmark under 43 CFR 412.3(e) Review of Systems All other systems reviewed negative except as stated in HPI PMFSH - History History Provided By: Patient - Medical History Medical History: Medical History (Last Reviewed 01/05/18 @ 10:20 by Teddy Kee MD) Anxiety Depression - Surgical History Surgical History: Surgical History (Last Updated 01/05/18 @ 10:20 by Teddy Kee MD) H/O lithotripsy - Family History Family History: Family History (Last Updated 01/05/18 @ 10:20 by Teddy Kee MD) Other Family history non-contributory - Tobacco History Tobacco Use In Past 30 Days: Yes Smoking Status: Current every day smoker Tobacco Type: Cigarettes Packs Per Day: 1 - Substance Use History Substance History: Past History - Travel History Recent Travel in the [place] Within the Last 8 Weeks: No Recent Travel Out of the Country Within the Last 8 Weeks: No Medications and Allergies Active Medications: Active Medications Al Hydroxide/Mg Hydroxide (Milk Of Magnesia Liq) 30 ml PO Q12H PRN PRN Reason: Mild Constipation Bisacodyl (Dulcolax Supp) 10 mg RECTAL DAILY PRN PRN Reason: SEVERE CONSITIPATION Lactulose (Lactulose Liq) 30 ml PO DAILY PRN PRN Reason: SEVERE CONSITIPATION Ondansetron HCl (Zofran Inj) 4 mg IV.PUSH Q6H PRN PRN Reason: NAUSEA OR VOMITING Senna/Docusate Sodium (Suzi-Colace) 1 tab PO BID NICOLE Sennosides (Senokot) 17.2 mg PO Q12H PRN PRN Reason: Moderate Constipation Sodium Chloride (Ns Flush) 2 ml IV.FLUSH UNSCH PRN PRN Reason: FLUSH AFTER USING IV ACCESS Temazepam (Restoril) 15 mg PO HS PRN PRN Reason: INSOMNIA Allergies Allergy/AdvReac Type Severity Reaction Status Date / Time No Known Allergies Allergy Unverified 01/05/18 00:49 Home Medications Medication Instructions Recorded Confirmed Type aripiprazole 10 mg PO DAILY 01/05/18 01/05/18 History aripiprazole [Abilify] 5 mg PO DAILY 01/05/18 01/05/18 History benztropine 0.02 mg/kg PO BID 01/05/18 01/05/18 History divalproex [Depakote] 1,000 mg PO DAILY 01/05/18 01/05/18 History gabapentin 800 mg PO BID 01/05/18 01/05/18 History trazodone 100 mg PO DAILY 01/05/18 01/05/18 History venlafaxine 300 mg PO DAILY 01/05/18 01/05/18 History Exam Vital signs: Vital Signs 01/05/18 00:49 01/05/18 02:13 01/05/18 03:49 Temperature 98.6 F Pulse Rate 91 H Respiratory Rate 16 Blood Pressure 130/84 Pulse Oximetry 100 98 100 01/05/18 06:47 01/05/18 06:48 01/05/18 06:49 Temperature Pulse Rate 72 Respiratory Rate 16 Blood Pressure 102/61 102/72 Pulse Oximetry 96 01/05/18 09:12 Temperature 98.0 F Pulse Rate 77 Respiratory Rate 18 Blood Pressure 95/51 L Pulse Oximetry 93 L Intake & Output 01/04/18 01/05/18 01/05/18 18:59 06:59 18:59 Weight 72.575 kg Narrative: GENERAL: This is a well-nourished, well-developed patient, in no apparent distress. CARDIOVASCULAR: Normal rate and regular rhythm without murmurs, gallops, or rubs. RESPIRATORY: Good respiratory efforts. Breath sounds equal and clear to auscultation bilaterally. GASTROINTESTINAL: Abdomen soft, non-tender, non-distended. Normal active bowel sounds MUSCULOSKELETAL: Extremities without cyanosis, or edema. NEURO: Alert & Oriented x4 to person, place, time, situation. Moves all ext x4 PSYCH: Somewhat guarded. At times slow to respond to questions. Results - Labs CBC & Chem 7: 01/05/18 01:50 01/05/18 05:10 Labs: Short CBC 01/05/18 Range/Units 01:50 WBC 10.1 (4.0-11.0) th/mm3 Hgb 14.7 (13.0-17.0) gm/dL Hct 44.4 (39.0-51.0) % Plt Count 236 (150-450) th/mm3 BMP 01/05/18 05:10 Sodium 141 Potassium 4.2 Chloride 108 H Carbon Dioxide 25.5 BUN 13 Creatinine 0.87 Calcium 8.8 Cardiac Enzymes 01/05/18 01/05/18 Range/Units 01:50 05:10 Total Creatine Kinase ND 74 CK-MB (CK-2) ND Troponin I ND Less than 0.02 L Liver Function 01/05/18 Range/Units 05:10 Total Bilirubin 0.4 (0.2-1.0) mg/dL AST 18 (15-37) U/L ALT 23 (12-78) U/L Alkaline Phosphatase 100 (45-117) U/L Albumin 3.7 (3.4-5.0) g/dL Urine 01/05/18 Range/Units 03:00 Urine Color Yellow (Yellw/Straw) Urine Clarity Clear (Clear) Urine pH 6.0 (5.0-8.5) Ur Specific [place] 1.006 (1.002-1.035) Urine Protein Negative (Neg-Trace) mg/dL Urine Glucose (UA) Negative (Negative) mg/dL - Imaging Impressions Chest X-Ray 01/05/18 01:52 CONCLUSION: 1. No acute cardiopulmonary disease. Head CT 01/05/18 05:31 CONCLUSION: 1. No acute intracranial abnormality. Caprini VTE Risk Assessment Caprini VTE Risk Assessment: No/Low Risk (score <= 1) Caprini Risk Assessment Model: Point Value = 1 Point Value = 2 Point Value = 3 Point Value = 5 Age 41-60 Minor surgery BMI > 25 kg/m2 Swollen legs Varicose veins or History of unexplained or recurrent spontaneous Oral contraceptives or hormone replacement Sepsis (< 1 month) Serious lung disease, including pneumonia (< 1 month) Abnormal pulmonary function Acute myocardial infarction Congestive heart failure (< 1 month) History of inflammatory bowel disease Medical patient at bed rest Age 61-74 Arthroscopic surgery Major open surgery (> 45 min) Laparoscopic surgery (> 45 min) Malignancy Confined to bed (> 72 hours) Immobilizing plaster cast Central venous access Age >= 75 History of VTE Family history of VTE Factor V Leiden Prothrombin [id number] Lupus anticoagulant Anticardiolipin antibodies Elevated serum homocysteine Heparin-induced thrombocytopenia Other congenital or acquired thrombophilia Stroke (< 1 month) Elective arthroplasty Hip, pelvis, or leg fracture Acute spinal cord injury (< 1 month) Prophylaxis Regimen: Total Risk Factor Score Risk Level Prophylaxis Regimen 0-1 Low Early ambulation 2 Moderate Order ONE of the following: *Sequential Compression Device (SCD) *Heparin 5000 units SQ BID 3-4 Higher Order ONE of the following medications: *Heparin 5000 units SQ TID *Enoxaparin/Lovenox 40 mg SQ daily (WT < 150 kg, CrCl > 30 mL/min) *Enoxaparin/Lovenox 30 mg SQ daily (WT < 150 kg, CrCl > 10-29 mL/min) *Enoxaparin/Lovenox 30 mg SQ BID (WT < 150 kg, CrCl > 30 mL/min) AND/OR *Sequential Compression Device (SCD) 5 or more Highest Order ONE of the following medications: *Heparin 5000 units SQ TID (Preferred with Epidurals) *Enoxaparin/Lovenox 40 mg SQ daily (WT < 150 kg, CrCl > 30 mL/min) *Enoxaparin/Lovenox 30 mg SQ daily (WT < 150 kg, CrCl > 10-29 mL/min) *Enoxaparin/Lovenox 30 mg SQ BID (WT < 150 kg, CrCl > 30 mL/min) AND *Sequential Compression Device (SCD) Assessment and Plan - Assessment (1) Acute encephalopathy Code(s): G93.40 - Encephalopathy, unspecified Status: Acute Plan: Patient lethargic on presentation. He attributed this to a new medication, Cogentin. He reports associated worsening depressive symptoms and suicidal ideation. His symptoms are significantly improved. Urine drug screen is negative. He has been on Effexor, gabapentin, Abilify. Cogentin recently added. Symptoms could be due to polypharmacy. Consult psychiatry to assist with psychiatric medication management. Continue to monitor neurological status. (2) Anxiety and depression Code(s): F41.9 - Anxiety disorder, unspecified; F32.9 - Major depressive disorder, single episode, unspecified Status: Acute Plan: See above. Psychiatry consulted for assistance. (3) Suicidal ideation Code(s): R45.851 - Suicidal ideations Status: Acute Plan: Psychiatry consulted as above. Jimmie
[2018-01-05] MEDS: Senna/Docusate Sodium 8.6/50 MG Tablet PO SCH ×2 (11:26→22:01)
--- NOTE | 2018-01-05 13:59 | P.CONPSY ---
Provisional Diagnosis Admission Date: January 05, 2018 06:09 [place] I.: Bipolar disorder, anxiety, akathisia [place] II.: Deferred [place] III.: No medical conditions History of Present Illness Service: Psychiatry Primary Care Provider: No Primary Care Physician History of Present Illness: The patient is a 37-year-old man, domiciled in [place] with roommate , , employed as a security system installer, with psychiatric history of bipolar disorder, anxiety, about 7 hospitalizations, one previous suicidal attempt by cutting, last hospitalization was in January 2018, established outpatient psychiatric care in [facility], he is in Effexor 200 mg, Abilify 10 mg, gabapentin 800 mg 3 times daily, benztropine 1 mg twice daily, no significant medical history, who reports he has been on gabapentin, Effexor, and Abilify. He follows with Zafar Webber. About a week ago he states he was started on Cogentin to help with tremors. Since then, he reports he has been a foggy feeling. He states his depression got worse to the point he where he became suicidal. He is still reporting suicidal ideation at this time but does not have a plan. EMR reviewed. Case discussed with primary medical team. On my psychiatric evaluation I find the patient is calm, cooperative, anxious. The patient reports that he has a long history of bipolar disorder and he has been quite stable in current psychotropic regimen, but Abilify was increased from 5-10 mg about a month ago and since then he has been having more anxiety, he went to [facility] to complain about these and he was a started in benztropine 1 mg twice daily "and now over the anxiety I feel quite foggy". The patient reports that he has been feeling an internet sourcer anxiety, a sensation of getting out of his skin, in the whole body, but essentially lower extremities. He reports that his anxiety is at times so severe that he had suicidal thoughts. The patient said that he prefers to be than feeling like this. Since he started the benztropine, the anxiety has not stop and at the same time he feels like he thoughts are very slow and he cannot think clearly. At this moment the patient reports okay mood, he denies anhedonia, he denies hopelessness, helplessness, he says that he wants to get better, he denies suicidal and homicidal ideation, he denies visual and auditory hallucinations. The patient is fully oriented 3 , no attention deficit, no fluctuation of consciousness, no gross cognitive impairment. during my evaluation no acute gracie, no loosening of associations, no dissociative thinking, tangentiality, ideas of reference, delusions or paranoia are elicited. The patient denies the use of alcohol and illegal drugs. Review of Systems Constitutional: Reports fatigue, Denies anorexia, Denies body ache(s), Denies chills, Denies daytime sleepiness, Denies excessive sweating, Denies fever(s), Denies headache(s), Denies increased appetite, Denies lack of energy, Denies malaise, Denies night sweats, Denies weakness, Denies weight gain, Denies weight loss, Denies other Cardiovascular: Denies chest pain, Denies chest pain at rest, Denies chest pain with activity, Denies excessive sweating, Denies fainting, Denies fast heart rate, Denies foot swelling, Denies generalized swelling, Denies irregular heart rhythm, Denies leg pain with activity, Denies leg sores, Denies leg swelling, Denies lightheadedness, Denies radiating jaw, neck or arm pain, Denies rapid, pounding, or irregular heartbeat, Denies shortness of breath, Denies shortness of breath with activity, Denies shortness of breath when lying down, Denies shortness of breath causing sudden awakening, Denies slow heart rate, Denies other Respiratory: Denies change in phlegm color, Denies chest congestion, Denies cough, Denies coughing up blood, Denies excessive phlegm production, Denies pain on inspiration, Denies pain with cough, Denies shortness of breath, Denies shortness of breath with activity, Denies snoring, Denies stridor, Denies wheezing, Denies other Gastrointestinal: Denies abdominal pain, Denies belching, Denies black, tarry stools, Denies bloating, Denies bright, red blood in stools, Denies change in bowel habits, Denies constant urge to pass stool, Denies change in stools, Denies coffee ground vomit, Denies constipation, Denies cramping, Denies difficulty swallowing, Denies excessive passing of gas, Denies feeling full early, Denies heartburn, Denies incontinent of stools, Denies loose stools, Denies nausea, Denies pain with swallowing, Denies vomiting, Denies vomiting blood, Denies other Genitourinary: Denies blood in semen, Denies blood in urine, Denies decreased urination, Denies difficulty urinating, Denies difficulty with ejaculations, Denies erectile dysfunction, Denies genital lesions, Denies genital pain, Denies painful urination, Denies side pain, Denies frequent nighttime urination , Denies painful ejaculations, Denies penile discharge, Denies scrotal swelling , Denies testicle lump, Denies testicle pain, Denies urinary frequency, Denies urinary hesitancy, Denies urinary incontinence, Denies urinary urgency, Denies other Musculoskeletal: Denies abnormal walking, Denies back pain, Denies body aches, Denies decreased muscle mass, Denies deformity, Denies joint pain, Denies joint swelling, Denies limited joint movement, Denies loss of height, Denies muscle cramps, Denies muscle weakness, Denies neck pain, Denies numbness, Denies radiating pain into limb, Denies stiffness, Denies tingling, Denies other Neurologic: Denies abnormal hearing, Denies abnormal movements, Denies abnormal speech, Denies abnormal walking, Denies behavioral changes, Denies burning sensations, Denies confusion, Denies dizziness, Denies fainting, Denies frequent falls, Denies headache(s), Denies lack of coordination, Denies localized weakness, Denies loss of vision, Denies memory loss, Denies numbness, Denies other visual disturbances, Denies radiating pain, Denies restless legs, Denies convulsions, Denies seizure-like activity, Denies sensory deficit, Denies tingling, Denies tingling/numbness/burning sensations, Denies tremor(s), Denies unsteadiness, Denies weakness, Denies other Psychiatric: Reports anxiety, Reports irritability PMFSH - History History Provided By: Patient - Medical History Medical History: Medical History (Last Reviewed 01/05/18 @ 10:20 by Teddy Kee MD) Anxiety Depression - Surgical History Surgical History: Surgical History (Last Updated 01/05/18 @ 10:20 by Teddy Kee MD) H/O lithotripsy - Family History Family History: Family History (Last Updated 01/05/18 @ 13:52 by Dg Delgadillo MD) Other Bipolar disorder Family history non-contributory - Tobacco History Second Hand Smoke Exposure: Yes Tobacco Use In Past 30 Days: Yes Smoking Status: Current every day smoker Tobacco Type: Cigarettes Packs Per Day: 1 - Alcohol History How Often Do You Have a Drink Containing Alcohol: Never - Substance Use History Substance History: Past History - Travel History Recent Travel in the [place] Within the Last 8 Weeks: No Recent Travel Out of the Country Within the Last 8 Weeks: No Medications and Allergies Active Medications: Active Medications Al Hydroxide/Mg Hydroxide (Milk Of Magnesia Liq) 30 ml PO Q12H PRN PRN Reason: Mild Constipation Bisacodyl (Dulcolax Supp) 10 mg RECTAL DAILY PRN PRN Reason: SEVERE CONSITIPATION Lactulose (Lactulose Liq) 30 ml PO DAILY PRN PRN Reason: SEVERE CONSITIPATION Ondansetron HCl (Zofran Inj) 4 mg IV.PUSH Q6H PRN PRN Reason: NAUSEA OR VOMITING Propranolol HCl (Inderal) 10 mg PO TID [facility] Senna/Docusate Sodium (Suzi-Colace) 1 tab PO BID [facility] Last Admin: 01/05/18 11:26 Dose: Not Given Sennosides (Senokot) 17.2 mg PO Q12H PRN PRN Reason: Moderate Constipation Sodium Chloride (Ns Flush) 2 ml IV.FLUSH UNSCH PRN PRN Reason: FLUSH AFTER USING IV ACCESS Temazepam (Restoril) 15 mg PO HS PRN PRN Reason: INSOMNIA Allergies Allergy/AdvReac Type Severity Reaction Status Date / Time No Known Allergies Allergy Unverified 01/05/18 00:49 Home Medications Medication Instructions Recorded Confirmed Type aripiprazole 10 mg PO DAILY 01/05/18 01/05/18 History aripiprazole [Abilify] 5 mg PO DAILY 01/05/18 01/05/18 History benztropine 0.02 mg/kg PO BID 01/05/18 01/05/18 History divalproex [Depakote] 1,000 mg PO DAILY 01/05/18 01/05/18 History gabapentin 800 mg PO BID 01/05/18 01/05/18 History trazodone 100 mg PO DAILY 01/05/18 01/05/18 History venlafaxine 300 mg PO DAILY 01/05/18 01/05/18 History Exam Vital signs: Vital Signs 01/05/18 00:49 01/05/18 02:13 01/05/18 03:49 Temperature 98.6 F Pulse Rate 91 H Respiratory Rate 16 Blood Pressure 130/84 Pulse Oximetry 100 98 100 01/05/18 06:47 01/05/18 06:48 01/05/18 06:49 Temperature Pulse Rate 72 Respiratory Rate 16 Blood Pressure 102/61 102/72 Pulse Oximetry 96 01/05/18 09:12 01/05/18 12:00 Temperature 98.0 F 97.6 F Pulse Rate 77 78 Respiratory Rate 18 18 Blood Pressure 95/51 L 97/58 L Pulse Oximetry 93 L 97 Intake & Output 01/04/18 01/05/18 01/05/18 18:59 06:59 18:59 Weight 72.575 kg Narrative: He does not present any EPS at the moment, no withdrawal symptoms, no psychomotor agitation retardation, no gait disturbance Mental Status Examination Appearance: Appropriate Consciousness: Alert Orientation: x4 Motor Activity: Normal gait Speech: Unremarkable Language: Adequate Fund of Knowledge: Adequate Memory: Unremarkable Mood: Sad Affect: Irritable Thought Process & Associations: Intact Thought Content: Appropriate Hallucination Type: None Delusion Type: None Suicidal Ideation: Yes Suicidal Plan: No Suicidal Intention: No Homicidal Ideation: No Homicidal Plan: No Homicidal Intention: No Insight: Fair Judgment: Impulsive Assessment and Plan - Assessment (1) Bipolar 1 disorder Code(s): F31.9 - Bipolar disorder, unspecified Status: Acute (2) Akathisia Code(s): G25.71 - Drug induced akathisia Status: Acute - Plan Plan: Estimated LOS: [] days On my psychiatric evaluation today find a patient that is cooperative, but irritable and objectively anxious. The patient reports that since his Abilify was increased to 10 mg he has been having increased anxiety and at times even involuntary/jerking movement of his extremities. He was initiated in benztropine 1 mg twice daily in [facility] to treat this symptoms, but apparently the anxiety has improved and now he feels quite foggy and cognitively slow. The describe anxiety has been so severe at times of the patient has had suicidal thoughts. At this moment the patient is willing to accept psychiatric help and he denies depressive symptoms, he denies suicidal enemas ideation, he denies visual and auditory hallucinations. The patient was able to contract for safety in the ER. This is a patient with psychiatric history of bipolar disorder, anxiety, previous psychiatric admissions, suicidal attempts, who has an outpatient psychiatric care in [facility]. Above described symptoms seems to be consistent with akathisia which is quite common side effect of Abilify, however anticholinergic medication in those cases do not help and in this particular case are causing more cognitive impairment that help with akathisia. I will decrease Abilify to 5 mg. Will restart Effexor 200 mg, gabapentin 800 mg 3 times daily. Discontinue benztropine. Start propranolol 10 mg 3 times daily for akathisia. Patient will be admitted in psychiatry for medication adjustment and stabilization. Psychoeducation provided Justification for Continued Inpatient Stay: Patient will be admitted in psychiatry
[2018-01-05] MEDS: Propranolol 10 MG Tablet PO SCH (18:53)
[2018-01-05] MEDS ORDERED: Acetaminophen 325 MG Tablet PO PRN (21:52)
[2018-01-06 09:14] LABS: Baso # (Auto) 0.1 th/mm3 (0.0-0.2); Baso % (Auto) 0.8 % (0.0-2.0); Eos # (Auto) 0.3 th/mm3 (0.0-0.4); Eos % (Auto) 4.9 % (0.0-4.0); Hematocrit 41.9 % (39.0-51.0); Hemoglobin 14.1 gm/dL (13.0-17.0); Lymph # (Auto) 2.5 th/mm3 (1.0-4.8); Mean Corpuscular HGB Conc 33.6 % (32.0-36.0); Mean Corpuscular Hemoglobin 30.8 pg (27.0-34.0); Mean Corpuscular Volume 91.7 fL (80.0-100.0); Mean Platelet Volume 9.6 fL (7.0-11.0); Mono # (Auto) 0.9 th/mm3 (0.0-0.9); Mono % (Auto) 13.3 % (0.0-8.0); Neut # (Auto) 2.8 th/mm3 (1.8-7.7); Platelet Count 224 th/mm3 (150-450); Red Blood Count 4.57 mil/mm3 (4.50-5.90); Red Cell Distribution Width 14.7 % (11.6-17.2); White Blood Count 6.6 th/mm3 (4.0-11.0)
[2018-01-06] MEDS: Propranolol 10 MG Tablet PO SCH ×2 (09:19→14:06)
[2018-01-06] MEDS: Senna/Docusate Sodium 8.6/50 MG Tablet PO SCH (09:19)
[2018-01-06 09:33] LABS: Anion Gap 8 meq/L (5-15); Blood Urea Nitrogen 17 mg/dL (7-18); Calcium 9.1 mg/dL (8.5-10.1); Carbon Dioxide 28.7 meq/L (21.0-32.0); Chloride 103 meq/L (98-107); Glomerular Filtration Rate Greater Than 89 mL/min (>89); Glucose,Random 86 mg/dL (74-106); Potassium 3.9 meq/L (3.5-5.1); Sodium 140 meq/L (136-145)
--- NOTE | 2018-01-06 11:59 | P.PNIM ---
Subjective Interval history: Patient reports he is feeling better today. Less foggy. Able to answer questions better. Physical Exam Vital signs: Vital Signs 01/05/18 12:00 01/05/18 16:00 01/05/18 20:00 Temperature 97.6 F 99.5 F Pulse Rate 78 86 99 H Respiratory Rate 18 17 Blood Pressure 97/58 L 105/59 L Pulse Oximetry 97 94 L 01/05/18 23:48 01/06/18 04:00 01/06/18 08:00 Temperature 98.4 F 97.8 F 97.5 F L Pulse Rate 82 73 62 Respiratory Rate 17 17 Blood Pressure 100/58 L 96/67 L 102/65 Pulse Oximetry 93 L 96 97 01/06/18 09:21 Temperature Pulse Rate 62 Respiratory Rate Blood Pressure Pulse Oximetry Intake & Output 01/05/18 01/06/18 01/06/18 18:59 06:59 18:59 Intake Total 450 / 450 500 / 500 Balance 450 / 450 500 / 500 Intake: IV 500 / 500 Oral 450 / 450 Other: # Voids 3 Narrative: GENERAL: This is a well-nourished, well-developed patient, in no apparent distress. CARDIOVASCULAR: Normal rate and regular rhythm without murmurs, gallops, or rubs. RESPIRATORY: Good respiratory efforts. Breath sounds equal and clear to auscultation bilaterally. GASTROINTESTINAL: Abdomen soft, non-tender, non-distended. Normal active bowel sounds MUSCULOSKELETAL: Extremities without cyanosis, or edema. NEURO: Alert & Oriented x4 to person, place, time, situation. Moves all ext x4 PSYCH: Appropriate mood and affect. Results - Labs CBC & Chem 7: 01/06/18 08:21 01/06/18 08:21 Laboratory Results - last 24 hr 01/06/18 01/06/18 08:21 08:21 WBC 6.6 RBC 4.57 Hgb 14.1 Hct 41.9 MCV 91.7 MCH 30.8 MCHC 33.6 RDW 14.7 Plt Count 224 MPV 9.6 Neut % (Auto) 43.0 Lymph % (Auto) 38.0 [place] % (Auto) 13.3 H Eos % (Auto) 4.9 H Baso % (Auto) 0.8 Neut # (Auto) 2.8 Lymph # (Auto) 2.5 [place] # (Auto) 0.9 Eos # (Auto) 0.3 Baso # (Auto) 0.1 WBC Differential . Differential Comment Auto diff final Sodium 140 Potassium 3.9 Chloride 103 Carbon Dioxide 28.7 Anion Gap 8 BUN 17 Creatinine 0.87 Estimated GFR Greater than 89 Random Glucose 86 Calcium 9.1 Assessment and Plan - Assessment (1) Acute encephalopathy Code(s): G93.40 - Encephalopathy, unspecified Status: Acute Plan: Patient lethargic on presentation. He attributed this to a new medication, Cogentin. He reports associated worsening depressive symptoms and suicidal ideation. His symptoms are significantly improved. Urine drug screen is negative. He has been on Effexor, gabapentin, Abilify. Cogentin recently added. Symptoms likely due to polypharmacy and medication side effects. Patient has been evaluated by psychiatry with adjustment in his medications. He will be discharged to psychiatry for stabilization and psychiatric med management. The patient is medically clear for admission to psychiatry (2) Anxiety and depression Code(s): F41.9 - Anxiety disorder, unspecified; F32.9 - Major depressive disorder, single episode, unspecified Status: Acute Plan: See above. Patient needs further stabilization and titration of psychiatric medication. He is discharged to psychiatry. (3) Suicidal ideation Code(s): R45.851 - Suicidal ideations Status: Acute Plan: See above - Plan Discharge Planning: The patient is medically cleared for discharge to psychiatry. Discharge in stable condition Activity: Regular Diet: Regular Meds: Per med rec Follow-up: With PCP and psychiatry.
--- NOTE | 2018-01-06 15:35 | P.PNPSY ---
Subjective Remarks: I have seen the patient today for psychiatric reevaluation. The patient continues to be quite depressed, with reported poor motivation, decreased energy , slow thinking. He reports improvement in his anxiety, but he continues to have suicidal thoughts, no plan. He is able to contract for safety in the unit. He says objectively guarded, internally preoccupied, but definitely less anxious than yesterday. He denies visual and auditory hallucinations. He is oriented 3. Mental Status Examination Appearance: Appropriate Consciousness: Alert Orientation: x4 Motor Activity: Normal gait Speech: Unremarkable Language: Adequate Fund of Knowledge: Adequate Memory: Unremarkable Mood: Sad Affect: Irritable Thought Process & Associations: Intact Thought Content: Appropriate Hallucination Type: None Delusion Type: None Suicidal Ideation: Yes Suicidal Plan: No Suicidal Intention: No Homicidal Ideation: No Homicidal Plan: No Homicidal Intention: No Insight: Fair Judgment: Impulsive Assessment and Plan - Assessment (1) Bipolar 1 disorder Code(s): F31.9 - Bipolar disorder, unspecified Status: Acute (2) Akathisia Code(s): G25.71 - Drug induced akathisia Status: Acute - Plan Plan: Estimated LOS: [] days On my psychiatric evaluation today find a patient that is cooperative, but irritable and objectively anxious. The patient reports that since his Abilify was increased to 10 mg he has been having increased anxiety and at times even involuntary/jerking movement of his extremities. He was initiated in benztropine 1 mg twice daily in [facility] to treat this symptoms, but apparently the anxiety has improved and now he feels quite foggy and cognitively slow. The describe anxiety has been so severe at times of the patient has had suicidal thoughts. At this moment the patient is willing to accept psychiatric help and he denies depressive symptoms, he denies suicidal enemas ideation, he denies visual and auditory hallucinations. The patient was able to contract for safety in the ER. This is a patient with psychiatric history of bipolar disorder, anxiety, previous psychiatric admissions, suicidal attempts, who has an outpatient psychiatric care in [facility]. Above described symptoms seems to be consistent with akathisia which is quite common side effect of Abilify, however anticholinergic medication in those cases do not help and in this particular case are causing more cognitive impairment that help with akathisia. I will decrease Abilify to 5 mg. Will restart Effexor 200 mg, gabapentin 800 mg 3 times daily. Discontinue benztropine. Start propranolol 10 mg 3 times daily for akathisia. Patient will be admitted in psychiatry for medication adjustment and stabilization. Psychoeducation provided Patient continue for psychiatric admission. Continue current psychotropic regimen. Brief supportive psychotherapy provided Justification for Continued Inpatient Stay: Patient will be admitted in psychiatry
== END 2018-01-06 14:11 ==
LOC: NEPE 00:40 → NEPFCDU 00:40 → NEDA 00:40 → NEPFCDU 08:07
PROVIDERS: ADMIT Family Medicine; ATTEND Family Medicine
DX: R47.81 Slurred speech; Z87.891 Personal history of nicotine dependence; R45.851 Suicidal ideations; F31.9 Bipolar disorder, unspecified; F41.9 Anxiety disorder, unspecified; R41.82 Altered mental status, unspecified; R45.87 Impulsiveness; Z79.899 Other long term (current) drug therapy; E72.20 Disorder of urea cycle metabolism, unspecified; G25.71 Drug induced akathisia; G93.40 Encephalopathy, unspecified

== ENCOUNTER 2018-01-06 13:09 | Inpatient (IN) ==
[2018-01-06] MEDS ORDERED: Aluminum/Magnesium/Simethacone Susp 30 ML UDC PO PRN (15:30)
[2018-01-06] MEDS ORDERED: Bisacodyl 10 MG Supp RECTAL PRN (15:30)
[2018-01-06] MEDS ORDERED: Senna/Docusate Sodium 8.6/50 MG Tablet PO SCH (21:00)
[2018-01-06] MEDS ORDERED: Gabapentin 400 MG Capsule PO SCH (22:00)
[2018-01-07 07:15] LABS: Anion Gap 7 meq/L (5-15); Blood Urea Nitrogen 13 mg/dL (7-18); Calcium 9.3 mg/dL (8.5-10.1); Carbon Dioxide 29.3 meq/L (21.0-32.0); Chloride 105 meq/L (98-107); Glomerular Filtration Rate Greater Than 89 mL/min (>89); Glucose,Random 91 mg/dL (74-106); Potassium 3.9 meq/L (3.5-5.1); Sodium 141 meq/L (136-145)
[2018-01-07 07:17] LABS: Cholesterol 270 mg/dL (120-200); Triglycerides 312 mg/dL (42-150)
[2018-01-07 07:18] LABS: HDL Cholesterol 35.5 mg/dL (40.0-60.0); LDL Cholesterol,Calculated 172 mg/dL (0-99)
[2018-01-07] MEDS ORDERED: Propranolol 10 MG Tablet PO SCH (09:00)
[2018-01-07] MEDS ORDERED: ARIPiprazole 5 MG Tablet PO SCH (09:00)
[2018-01-07] MEDS ORDERED: ARIPiprazole 10 MG Tablet PO SCH (11:06)
[2018-01-07] MEDS: Venlafaxine XR 75 MG Capsule PO SCH (11:29)
[2018-01-07] MEDS: Gabapentin 400 MG Capsule PO SCH ×3 (11:48→21:11)
[2018-01-07] MEDS: Propranolol 10 MG Tablet PO SCH ×3 (11:49→21:11)
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
[2018-01-07] MEDS: ARIPiprazole 10 MG Tablet PO SCH (12:46)
[2018-01-07 17:09] LABS: Hemoglobin A1c 5.2 % (4.3-6.0)
[2018-01-08] MEDS: Gabapentin 400 MG Capsule PO SCH ×3 (09:17→21:38)
[2018-01-08] MEDS: ARIPiprazole 10 MG Tablet PO SCH (09:18)
[2018-01-08] MEDS: Venlafaxine XR 75 MG Capsule PO SCH (09:19)
[2018-01-08] MEDS: Propranolol 10 MG Tablet PO SCH ×3 (09:22→21:38)
--- NOTE | 2018-01-08 11:25 | P.PNPSY ---
Subjective Chief Complaint: Depression, anxiety Remarks: Patient seen and examined with nurse. Chart reviewed. Case discussed with nursing staff. No behavioral issues noted overnight. Case discussed with counselor. On my examination today, the patient is pleased to be back on his psychotropic medications. He is tolerating these well without side effects. No motor side effects and in particular no akathisia from medications. No confusion. Mood remains a little on the low side and he continues to struggle with some anxiety, although he denies any suicidal or homicidal ideation. No psychotic symptoms. No physical complaints. Vital Signs Temp Pulse Resp BP Pulse Ox 01/08/18 05:03 97.6 F 54 L 16 107/60 99 01/07/18 18:00 98.4 F 87 18 128/66 96 Intake and Output 01/07/18 01/08/18 01/08/18 22:59 06:59 14:59 Other: Weight 73.3 kg Laboratory Results - last 24 hr 01/07/18 06:05 Hemoglobin A1c 5.2 Labs reviewed. Ammonia level decreased. Review of Systems All other systems reviewed negative except as stated in HPI Mental Status Examination Appearance: Appropriate Consciousness: Alert Orientation: x4 Motor Activity: Other (No abnormal motor movements noted) Speech: Unremarkable Language: Adequate Fund of Knowledge: Adequate Attention and Concentration: Adequate Memory: Unremarkable (Remains grossly intact on clinical exam) Mood: Anxious, Other (Mildly dysphoric) Affect: Blunt Thought Process & Associations: Intact, Logical, Goal directed, Linear Thought Content: Appropriate Hallucination Type: None Delusion Type: None Suicidal Ideation: No Suicidal Plan: No Suicidal Intention: No Homicidal Ideation: No Homicidal Plan: No Homicidal Intention: No Insight: Adequate Judgment: Adequate Assessment and Plan - Assessment (1) Bipolar affective disorder, depressed, moderate Code(s): F31.32 - Bipolar disorder, current episode depressed, moderate Status : Acute (2) Post-traumatic stress disorder, chronic Code(s): F43.12 - Post-traumatic stress disorder, chronic Status: Acute - Plan Plan: Continue current psychotropics as ordered. I did discuss with the patient alternatives to his Abilify as he is primarily struggling with depressive symptoms and Abilify is not terribly helpful for the depressed phase of bipolar illness. He tells me that he will consider an alternative, like Latuda, but he wants to continue with current regimen for now. Likewise, patient has not been able to receive every dose of Inderal due to blood pressure parameters. We discuss his options with regard to management of this medication, and the patient would like to leave this unchanged as well for now. He denies any lightheadedness or dizziness or other hypotensive symptoms from this medication. Continue to monitor on the inpatient unit. Continue other medications and care as ordered. Justification for Continued Inpatient Stay: Risk for decompensation in less restrictive environment Discharge Planning: Pending psychiatric stabilization Request Healthcare Surrogate/Guardian Advocate?: No
[2018-01-08] MEDS ORDERED: ARIPiprazole 10 MG Tablet PO SCH (12:00)
[2018-01-09] MEDS: Venlafaxine XR 75 MG Capsule PO SCH (08:57)
[2018-01-09] MEDS: Gabapentin 400 MG Capsule PO SCH ×3 (08:58→21:24)
[2018-01-09] MEDS: ARIPiprazole 10 MG Tablet PO SCH (08:59)
[2018-01-09] MEDS: Propranolol 10 MG Tablet PO SCH (09:02)
--- NOTE | 2018-01-09 11:59 | P.PNPSY ---
Subjective Chief Complaint: Depression, anxiety Remarks: Patient seen and examined with nurse. Chart reviewed. Case discussed with nursing staff. Case discussed in treatment team. On my examination today, the patient complains of some ongoing low mood. He denies any SI or HI. Denies any AVH. Patient has not been able to receive all 3 doses of his Inderal due to blood pressure parameters, but the patient feels that this medication is likely "unnecessary" as he is no longer having significant physical symptoms of anxiety now that he is back on his primary psychotropic medications. Denies side effects from medications. Complains of some pain in his posterior bilateral legs and knees, more prominent at night. No other physical complaints. Following up on our discussion from yesterday, patient would like to try Latuda to replace Abilify for Bipolar depression. Vital Signs Temp Pulse Resp BP Pulse Ox 01/09/18 05:16 98 F 57 L 16 94/57 L 96 Labs reviewed. No new labs. PE: No LE edema or erythema. No palpable cord. No tenderness to palpation. Negative Homans bilaterally. Review of Systems All other systems reviewed negative except as stated in HPI Mental Status Examination Appearance: Appropriate Consciousness: Alert Orientation: x4 Motor Activity: Other (No motor abnormalities noted) Speech: Unremarkable Language: Adequate Fund of Knowledge: Adequate Attention and Concentration: Adequate Memory: Unremarkable (Remains grossly intact on clinical exam) Mood: Other (Depressed) Affect: Blunt Thought Process & Associations: Intact, Logical, Goal directed, Linear Thought Content: Appropriate Hallucination Type: None Delusion Type: None Suicidal Ideation: No Suicidal Plan: No Suicidal Intention: No Homicidal Ideation: No Homicidal Plan: No Homicidal Intention: No Insight: Adequate Judgment: Adequate Assessment and Plan - Assessment (1) Bipolar affective disorder, depressed, moderate Code(s): F31.32 - Bipolar disorder, current episode depressed, moderate Status : Acute (2) Post-traumatic stress disorder, chronic Code(s): F43.12 - Post-traumatic stress disorder, chronic Status: Acute - Plan Plan: Discontinue Inderal per patient preference. Discontinue Abilify and replace with Latuda 20mg with dinner tonight, titrating to 40mg with dinner tomorrow for Bipolar depression. Continue Effexor and gabapentin as ordered. Check a BMP as electrolyte abnormalities could be the cause of reported calf/knee pain. Continue to monitor on the inpatient unit. Continue other medications and care as ordered. Justification for Continued Inpatient Stay: Medication changes. Risk for decompensation in less restrictive environment. Discharge Planning: Possible discharge beginning of next week. Request Healthcare Surrogate/Guardian Advocate?: No
[2018-01-09 18:06] LABS: Anion Gap 12 meq/L (5-15); Blood Urea Nitrogen 18 mg/dL (7-18); Carbon Dioxide 21.6 meq/L (21.0-32.0); Chloride 106 meq/L (98-107); Glomerular Filtration Rate Greater Than 89 mL/min (>89); Glucose,Random 96 mg/dL (74-106); Potassium 3.7 meq/L (3.5-5.1); Sodium 140 meq/L (136-145)
[2018-01-10] MEDS: Gabapentin 400 MG Capsule PO SCH ×3 (09:06→21:22)
[2018-01-10] MEDS: Venlafaxine XR 75 MG Capsule PO SCH (09:06)
--- NOTE | 2018-01-10 13:21 | P.PNPSY ---
Subjective Chief Complaint: Depression, anxiety Remarks: Patient was seen and case discussed with nursing. Patient is pleasant but quite anxious. Describes his mood today is "pretty good." Discussed his reasons for admission. He is compliant with his Latuda and denies any side effects. Interacting well with others during the coffee social. Eating and sleeping well Mental Status Examination Appearance: Appropriate Consciousness: Alert Orientation: x4 Motor Activity: Other (No motor abnormalities noted) Speech: Unremarkable Language: Adequate Fund of Knowledge: Adequate Attention and Concentration: Adequate Memory: Unremarkable (Remains grossly intact on clinical exam) Mood: Anxious Affect: Anxious Thought Process & Associations: Intact, Logical, Goal directed, Linear Thought Content: Appropriate Hallucination Type: None Delusion Type: None Suicidal Ideation: No Suicidal Plan: No Suicidal Intention: No Homicidal Ideation: No Homicidal Plan: No Homicidal Intention: No Insight: Adequate Judgment: Adequate Assessment and Plan - Assessment (1) Bipolar affective disorder, depressed, moderate Code(s): F31.32 - Bipolar disorder, current episode depressed, moderate Status : Acute (2) Post-traumatic stress disorder, chronic Code(s): F43.12 - Post-traumatic stress disorder, chronic Status: Acute - Plan Plan: Continue current treatment plan Justification for Continued Inpatient Stay: Patient would decompensate in a less restrictive setting Request Healthcare Surrogate/Guardian Advocate?: No
[2018-01-11] MEDS: Gabapentin 400 MG Capsule PO SCH ×3 (09:45→21:12)
[2018-01-11] MEDS: Venlafaxine XR 75 MG Capsule PO SCH (09:46)
--- NOTE | 2018-01-11 13:24 | P.PNPSY ---
Subjective Chief Complaint: Depression, anxiety Remarks: Patient was seen and case discussed with nursing. Patient is pleasant and cooperative with exam. He had a pleasant conversation with his mother. He is anxious to be discharged tomorrow so he can go to a sober living house. Describes his mood today is "pretty normal." Affect is quite anxious. Compliant with medications and behaving well on the unit Mental Status Examination Appearance: Appropriate Consciousness: Alert Orientation: x4 Motor Activity: Other (No motor abnormalities noted) Speech: Unremarkable Language: Adequate Fund of Knowledge: Adequate Attention and Concentration: Adequate Memory: Unremarkable (Remains grossly intact on clinical exam) Mood: Appropriate Affect: Anxious Thought Process & Associations: Intact, Logical, Goal directed, Linear Thought Content: Appropriate Hallucination Type: None Delusion Type: None Suicidal Ideation: No Suicidal Plan: No Suicidal Intention: No Homicidal Ideation: No Homicidal Plan: No Homicidal Intention: No Insight: Adequate Judgment: Adequate Assessment and Plan - Assessment (1) Bipolar affective disorder, depressed, moderate Code(s): F31.32 - Bipolar disorder, current episode depressed, moderate Status : Acute (2) Post-traumatic stress disorder, chronic Code(s): F43.12 - Post-traumatic stress disorder, chronic Status: Acute - Plan Plan: Continue current treatment plan Justification for Continued Inpatient Stay: Patient would decompensate in a less restrictive setting Request Healthcare Surrogate/Guardian Advocate?: No
[2018-01-12] MEDS: Venlafaxine XR 75 MG Capsule PO SCH (08:22)
[2018-01-12] MEDS: Gabapentin 400 MG Capsule PO SCH (08:22)
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
== END 2018-01-12 12:35 | disposition home or self-care (01) ==
LOC: H260 14:30
PROVIDERS: ADMIT Psychiatry & Neurology Psychiatry; ATTEND Psychiatry & Neurology Psychiatry